=== PATIENT | male | born 1965 | race Caucasian/White ===

== ENCOUNTER 2017-09-17 09:47 | Emergency (ER) | payer BC ==
[2017-09-17] MEDS ORDERED: SUMAtriptan SUCCINATE 6 MG/0.5 ML VIAL SQ STA (10:42)
[2017-09-17] MEDS ORDERED: METOCLOPRAMIDE 5 MG/ML 2 ML VIAL IVP STA (10:42)
[2017-09-17] MEDS ORDERED: diphenhydrAMINE 50 MG/ML 1 ML VIAL IVP STA (10:42)
[2017-09-17] MEDS ORDERED: KETOROLAC 30 MG/ML 1 ML VIAL IVP STA (10:42)
[2017-09-17] MEDS ORDERED: SODIUM CHLORIDE 0.9% 1,000 ML IV STA ×2 (10:42)
--- NOTE | 2017-09-17 10:48 | ED ---
Headache HPI - General Chief Complaint: Headache Stated Complaint: Migraine Time Seen by Provider: 09/17/17 10:15 Source: patient, RN notes reviewed Mode of arrival: ambulatory Limitations: no limitations - History of Present Illness Initial Comments: This is a 52-year-old male history of migraine headaches who states he had the onset of a right-sided headache for the most part typical of his migraines associated with hypertension 3 days ago. He states his been unrelenting since about 8 in severity he does have some photophobia no blurry vision no focal weakness he states he had nausea vomiting all day yesterday. He states when he tries get walk he does not really feel lightheaded dizzy when he feels wishy- washy. No fevers chills sweats no other symptoms no sinus congestion. He does state he had the flu earlier in this month that seemed to gotten resolved however. He states his blood pressure was in the 160 systolic this morning he states he has been a blood pressure medication of the past was having trouble with the medication was on and currently is not taking any. MD Complaint: headache, "migraine", other - Related Data Home Medications Medication Instructions Recorded Confirmed Albuterol Sulfate [Proair Hfa] 2 puff INHALATION RT-QID 12/15/15 09/17/17 Budesonide-Formot 160-4.5 Mcg 2 puff INHALATION RT-BID 12/15/15 09/17/17 [Symbicort 160-4.5 Mcg Inhaler] Cyclobenzaprine [Flexeril] 5 mg PO DAILY PRN 12/15/15 09/17/17 Carvedilol [Coreg] 25 mg PO BID 09/17/17 09/17/17 Chlorthalidone [Hygroton] 25 mg PO DAILY 09/17/17 09/17/17 Etodolac [Lodine] 400 mg PO BID 09/17/17 09/17/17 Gabapentin [Neurontin] 300 mg PO TID 09/17/17 09/17/17 Losartan Potassium 100 mg PO HS 09/17/17 09/17/17 SUMAtriptan SUCCINATE [Imitrex] 100 mg PO BID PRN 09/17/17 09/17/17 Tiotropium 18 Mcg/Puff [Spiriva] 1 cap INHALATION RT-DAILY 09/17/17 09/17/17 amLODIPine [Norvasc] 5 mg PO DAILY 09/17/17 09/17/17 Previous Rx's Medication Instructions Recorded Enalapril [Vasotec] 10 mg PO DAILY #30 tablet 09/17/17 Allergies Allergy/AdvReac Type Severity Reaction Status Date / Time No Known Allergies Allergy Verified 09/17/17 10:57 Review of Systems ROS Statement: Those systems with pertinent positive or pertinent negative responses have been documented in the HPI. ROS Other: All systems not noted in ROS Statement are negative. Past Medical History Past Medical History: Asthma, Hypertension Additional Past Medical History / Comment(s): NOSE BLEED, HEADACHES History of Any Multi-Drug Resistant Organisms: None Reported Additional Past Surgical History / Comment(s): LUMBAR SURGERY, FINGERS Past Psychological History: No Psychological Hx Reported Smoking Status: Former smoker Past Alcohol Use History: None Reported, Occasional, Rare Past Drug Use History: Marijuana General Exam - General Exam Comments Initial Comments: This is a well-developed well-nourished awake alert oriented 3 male Limitations: no limitations General appearance: alert, anxious Head exam: Present: other (Tennis palpation of the right temporal parietal scalp no step-off or crepitation no pulsatile findings.) Eye exam: Present: normal appearance, PERRL, EOMI. Absent: scleral icterus, conjunctival injection, periorbital swelling ENT exam: Present: mucous membranes dry Neck exam: Present: normal inspection. Absent: tenderness, meningismus, lymphadenopathy Respiratory exam: Present: normal lung sounds bilaterally. Absent: respiratory distress, wheezes, rales, rhonchi, stridor Cardiovascular Exam: Present: regular rate, normal rhythm, normal heart sounds. Absent: systolic murmur, diastolic murmur, rubs, gallop, clicks GI/Abdominal exam: Present: soft, normal bowel sounds. Absent: distended, tenderness, guarding, rebound, rigid Extremities exam: Present: normal inspection, full ROM, normal capillary refill. Absent: tenderness, pedal edema, joint swelling, calf tenderness Back exam: Present: normal inspection Neurological exam: Present: alert, oriented X3, CN II-XII intact Psychiatric exam: Present: normal affect, normal mood Skin exam: Present: warm, dry, intact, normal color. Absent: rash Course Vital Signs 09/17/17 09/17/17 09/17/17 09:56 12:00 13:17 Temperature 97.3 F L 97.8 F 98.0 F Pulse Rate 93 75 76 Respiratory 18 19 18 Rate Blood Pressure 176/101 184/115 159/111 O2 Sat by Pulse 99 98 99 Oximetry - Reevaluation(s) Reevaluation #1: 09/17/17 12:26 Patient is feeling much improved at this time. He still has elevated blood pressure. He will be given some medication to help normalize a. He again is currently not taking any medication. Medical Decision Making - Medical Decision Making Evaluation patient reveals his headache is gone his blood pressure is improved with the IV medication. He will be discharged on appropriate prescription for antihypertensive. She will follow-up with his doctor and return when necessary - Lab Data Result diagrams: 09/17/17 11:17 Lab Results 09/17/17 Range/Units 11:17 Sodium 142 (137-145) mmol/L Potassium 3.9 (3.5-5.1) mmol/L Chloride 104 (98-107) mmol/L Carbon Dioxide 30 (22-30) mmol/L Anion Gap 8 mmol/L BUN 10 (9-20) mg/dL Creatinine 0.80 (0.66-1.25) mg/dL Est GFR (MDRD) Af Amer >60 (>60 ml/min/1.73 sqM) Est GFR (MDRD) Non-Af >60 (>60 ml/min/1.73 sqM) Glucose 90 (74-99) mg/dL Calcium 9.7 (8.4-10.2) mg/dL Magnesium 2.0 (1.6-2.3) mg/dL Total Bilirubin 0.5 (0.2-1.3) mg/dL AST 18 (17-59) U/L ALT 38 (21-72) U/L Alkaline Phosphatase 70 (38-126) U/L Total Protein 6.3 (6.3-8.2) g/dL Albumin 3.7 (3.5-5.0) g/dL Disposition Clinical Impression: Migraine, Hypertensive urgency Disposition: HOME SELF-CARE Condition: Good Instructions: Acute Headache (ED), Hypertension (ED) Prescriptions: Enalapril [Vasotec] 10 mg PO DAILY #30 tablet Referrals: Noemi Wynne DO [Primary Care Provider] - 1-2 days
[2017-09-17 11:47] LABS: ALT 38 U/L (21-72); AST 18 U/L (17-59); Albumin 3.7 g/dL (3.5-5.0); Alkaline Phosphatase 70 U/L (38-126); Anion Gap 8 mmol/L; Blood Urea Nitrogen 10 mg/dL (9-20); Calcium 9.7 mg/dL (8.4-10.2); Carbon Dioxide 30 mmol/L (22-30); Chloride 104 mmol/L (98-107); Glucose 90 mg/dL (74-99); Potassium 3.9 mmol/L (3.5-5.1); Sodium 142 mmol/L (137-145); Total Bilirubin 0.5 mg/dL (0.2-1.3); Total Protein 6.3 g/dL (6.3-8.2)
[2017-09-17] MEDS ORDERED: ENALAPRILAT 1.25 MG/ML 1 ML VIAL IVP STA (12:13)
[2017-09-17 13:18] VITALS: BP 159/111; PULSE 76; RESP 18; TEMP 98
== END 2017-09-17 13:37 | disposition home or self-care (01) ==
LOC: EC 09:47
DX: I16.0 Hypertensive urgency (principal); G43.909 Migraine, unspecified, not intractable, without status migrainosus; I10 Essential (primary) hypertension; J45.909 Unspecified asthma, uncomplicated; Z87.891 Personal history of nicotine dependence; Z79.51 Long term (current) use of inhaled steroids; Z79.02 Long term (current) use of antithrombotics/antiplatelets; Z79.899 Other long term (current) drug therapy
CPT/HCPCS: 36415; 80053; 83735; 99283; 96374; 96375 ×3; 96361 ×2; 96372; J3030; J1200; J2765; J1885

== ENCOUNTER → 2019-07-15 | Outpatient (CLI) | payer BC ==
[2019-07-15 12:13] LABS: HGB 15.7 gm/dL (13.0-17.5); MCH 32.6 pg (25.0-35.0); MCHC 34.8 g/dL (31.0-37.0); MCV 93.5 fL (80.0-100.0); Mean Platelet Volume 6.9; Platelet Count 334 k/uL (150-450); Potassium 4.3 mmol/L (3.5-5.1); RBC 4.82 m/uL (4.30-5.90); WBC 10.2 k/uL (3.8-10.6)
[2019-07-15 12:14] LABS: Albumin 4.3 g/dL (3.5-5.0); Calcium 9.9 mg/dL (8.4-10.2)
[2019-07-15 12:15] LABS: Appearance,Urine Clear (Clear); Bilirubin,Urine 1+ (Negative); Blood,Urine Negative (Negative); Color,Urine Colorless; Glucose,Urine (UA) Negative (Negative); Ketones,Urine Negative (Negative); Leukocyte Esterase,Urine Negative (Negative); Nitrite,Urine Negative (Negative); Protein,Urine Negative (Negative); Specific Gravity,Urine 1.003 (1.001-1.035); Urobilinogen,Urine <2.0 mg/dL (<2.0)
[2019-07-15 12:21] LABS: Prothrombin Time 10.6 sec (9.0-12.0)
== END ==
LOC: LABPAT 11:10
PROVIDERS: ATTEND Orthopaedic Surgery
DX: Z01.812 Encounter for preprocedural laboratory examination (principal); M17.0 Bilateral primary osteoarthritis of knee
CPT/HCPCS: 36415; 80053; 81003; 85027; 85610; 85730; 87070

== ENCOUNTER 2019-07-28 10:45 | Inpatient (IN) | payer BC ==
[2019-07-21 13:57] VITALS: BMI 30.5
[~2019-07-28 10:45] MED LIST: ACETAMINOPHEN TAB 500 MG TAB PO ONE; GABAPENTIN 300 MG CAP PO ONE; HYDROmorphone 0.5 MG/0.5 ML SYRINGE IVP PRN; LACTATED RINGERS 1,000 ML IV SCH; LIDOCAINE 1% 20 ML VIAL (10MG/ML) FOR IV START INTRADERMA PRN; MELOXICAM 7.5 MG TAB PO ONE; ONDANSETRON 4 MG/2 ML VIAL IVP ONE; ROPIVACAINE 246.25 MG, EPINEPHrine 0.5 MG, KETOROLAC 30 MG, cloNIDine HCL/PF 80 MCG, WA... MISCELLANE ONE; TRANEXAMIC ACID 1,000 MG in SODIUM CHLORIDE 0.9% 100 ML IVPB ONE
[2019-07-28] MEDS ORDERED: DEXAMETHASONE SOD PHOSPHATE 10 MG/ML 1 ML VIAL IV ONE (11:23)
[2019-07-28] MEDS ORDERED: MIDAZOLAM 2 MG/2 ML VIAL IV ONE (12:07)
[2019-07-28] MEDS ORDERED: TRANEXAMIC ACID 1,000 MG/10 ML VIAL ONE (12:21)
[2019-07-28] MEDS ORDERED: MIDAZOLAM 2 MG/2 ML VIAL ONE (12:21)
[2019-07-28] MEDS ORDERED: LIDOCAINE 1% INJ 10MG/ML (20 ML MDV) ONE (12:21)
[2019-07-28] MEDS ORDERED: fentaNYL (PF) 50 MCG/ML 2 ML AMP ONE (12:21)
[2019-07-28] MEDS ORDERED: HYDROmorphone (PF) 1 MG/ML ONE (12:21)
[2019-07-28] MEDS ORDERED: SODIUM CHLORIDE 0.9% 100 ML BAG ONE (12:21)
[2019-07-28] MEDS ORDERED: ePHEDrine SULFATE/0.9% NACL/PF 50 MG/5 ML SYRINGE IV ONE (12:21)
[2019-07-28] MEDS ORDERED: SUCCINYLCHOLINE CHLORIDE 100 MG/5 ML SYR IV ONE (12:21)
[2019-07-28] MEDS ORDERED: PROPOFOL 10 MG/ML 20 ML VIAL IV ONE (12:21)
[2019-07-28] MEDS ORDERED: ceFAZolin 3,000 MG in SODIUM CHLORIDE 0.9% IRRIGATIO 3,000 ML IRRIGATION ONE (12:25)
[2019-07-28] MEDS ORDERED: LACTATED RINGERS 1,000 ML IV ONE ×2 (13:19→14:45)
[2019-07-28] MEDS ORDERED: TRANEXAMIC ACID 1,000 MG in SODIUM CHLORIDE 0.9% 100 ML IVPB ONE (14:27)
--- NOTE | 2019-07-28 15:45 | P.OP ---
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 ANESTHESIA: Spinal ESTIMATED BLOOD LOSS: 100 ml. OYSTER FISHERMAN: Tamica Driscoll NP (assistance with: patient positioning, retraction, exposure, hemostasis, leg positioning, implantation, irrigation, closure, dressing) COMPLICATIONS: None apparent. COMPONENTS IMPLANTED: Journey II BCS total knee system from and [employer] INDICATIONS: Rafa is a 54 year old male with a history of bilateral knee osteoarthritis. The patient's knees are end-stage, and conservative management has failed. He has bascially [id number]-sj-[id number] contact in the patellofemoral joint, which accounts for the majority of his symptoms. The operation of knee replacement bilaterally has been discussed at length in the office, as well as potential risks and complications. These are inclusive of, but not limited to: bleeding, infection, scarring, discomfort, blood vessel and nerve damage, need for further surgery, failure to relieve symptoms, persistence, recurrence, or worsening of problems, loosening, dislocation, wear, blood clot, pulmonary embo lism, , gait dysfunction, stiffness, and other risks as discussed in the office. He understands the increased risks of morbidity and mortality with a bilateral knee approach. The patient elects to proceed and the consent form has been signed. PROCEDURE: The patient was taken to the operating room and positioned on the operating room table in the supine position. Anesthesia was initiated. Care was taken to make sure that all pressure points were adequately padded. The operative lower extremities were prepped and draped in the usual aseptic fashion using ChloraPrep. Ioban drape was used for the case and the patient received intravenous antibiotics within one hour of the incision. A pneumotourniquet and leg singletary were used for the case. The initial limb (left) was exsanguinated with an Esmarch bandage and the tourniquet was inflated to 350 mmHg. Time-out was called confirming the patient's identity, side (bilateral), procedure and administration of antibiotics and tranexamic acid. The incision was then created midline directly over the left knee, carried down through skin and into the subcutaneous tissues and down to fascia. Full thickness subcutaneous medial flap was developed. Medial parapatellar arthrotomy was performed and the interior of the knee was inspected. There was end-stage osteoarthritis of the knee with a mild to moderate genu valgum type deformity. The fat pad was excised and proximal medial release on the tibia was completed using meticulous dissection and a curved osteotome. The anterior cruciate ligament was taken down. Note was made of significant attrition of the anterior and significant degenerative appearance of the cruciate ligaments. The exposure was excellent. The knee was flexed 90 degrees and the patella was everted. The [employer] pre- made distal cutting block was attached and pinned into position. The planned cut was analyzed visually and with the alignment maria luz and found to be satisfactory without the need for any adjustment. The oscillating saw was then used to make the distal femoral cut and make the alignment holes for the 5 in 1 block. This cut was confirmed to be flat with the flat end of an osteotome. The 5 in 1 block was then used to create the anterior posterior condylar resections and the chamfer cuts. The retractors were placed around the tibia and the tibial surface was addressed. The [employer] pre-made guide was placed onto the exposed tibial surface and pinned into position to morena the rotational alignment. The alignment of the guide was checked for depth of plannned resection, slope, and varus valgus. Guide was confirmed to be in good position and the tibial cut was then created with protection of the posterior neurovascular structures and the collateral ligaments. The tibial cut surface was removed and sized. Spacer block technique was then used to confirm that the flexion and extension gaps were equal. Soft tissue releases and adjustment of the tibial and/or femoral cuts were made, as necessary, until the gaps were equal. This included release of the posterior cruciate ligament, which was excessively tight in this patient. The trial components were inserted. The tibial tray was allowed to self center and the patella was noted to track very well. The position of the tibial component was marked and noted to be nearly exactly aligned with the pre-drilled holes from the [employer] guide. The tibia was then finished for a stemmed tibial component. Patellar resurfacing was performed using a reamer. The size of the required patellar component was estimated and the patellar surface was then reamed down to a residual thickness which would recreate the [place] thickness with the component. The exact placement of the patellar component was adjusted for position based on preoperative x-rays and intraoperative findings. Patellar tracking remained excellent after resurfacing. Trial components were removed and the cut surfaces of the bone were pulse lavaged thoroughly and dried. Cement was mixed on the back table and applied to the final components. Cement was then applied to the tibial surface and pressurized into the surface using finger pressurization technique. The tibial component was then applied and excess cement was removed after it was impacted securely and noted to be flush with the cut surface. In similar fashion, the cement was applied to the cut femoral surface, pressurized in using finger pressurization and the component was impacted into place. Excess cement was removed. The polyethylene spacer was then implanted and locked into position. The patellar component was then applied in similar technique and a patellar clamp was used to hold the patella in place as the cement hardened. Once the cement had fully hardened, the knee was reinspected. Any other cement extrusion was removed and final kinematic testing showed range of motion from 0 to 130 degrees with excellent stability, both medially and laterally and appropriate alignment of the leg. Patellar tracking was excellent. The knee was then thoroughly pulse lavaged with normal saline. The tourniquet was deflated and hemostasis was obtained with electrocautery and IV tranexamic acid, 1 g given at the start of the operation and 1 g at the start of closure. Closure was with #2 Ethibond in the fascia/capsule and supplemented with #2 Quill, 2-0 Vicryl suture was used for the subcutaneous tissues and 3-0 Quill for the skin. Exofin topical dressing was then applied. The right leg was then uncovered by snipping the covering sterile drape and discarding. The above steps for the left knee were followed in similar fashion with the outcome being a fully cemented bicruciate substituting reconstruction with excellent patellar tracking and 0-130 degrees motion. No complications were noted during the surgery on either knee. Estimated blood loss was 50 cc per knee, total of 100 cc for the entire procedure. A lightly compressive dressing was applied to both knees using Webril and an Denys wrap. The patient was then transferred to stretcher and taken to the recovery room in stable condition. Sponge and needle counts were correct.
[2019-07-28] MEDS ORDERED: HYDROmorphone 0.5 MG/0.5 ML SYRINGE IVP PRN ×2 (16:20)
[2019-07-28] MEDS ORDERED: MAGNESIUM HYDROXIDE 2,400 MG/10 ML CUP PO PRN (16:20)
[2019-07-28] MEDS ORDERED: TEMAZEPAM 15 MG CAP PO PRN (16:20)
[2019-07-28] MEDS ORDERED: BISACODYL 10 MG SUPP RECTAL PRN (16:20)
[2019-07-28] MEDS ORDERED: hydrOXYzine PAMOATE 25 MG CAP PO PRN (16:20)
[2019-07-28] MEDS ORDERED: NA PHOS,M-B/NA PHOS,DI-BA 133 ML ENEMA RECTAL PRN (16:20)
[2019-07-28] MEDS ORDERED: HYDROmorphone 1 MG/ML 1 ML SYRINGE IVP PRN (16:20)
[2019-07-28] MEDS ORDERED: HYDROcodone/APAP 7.5-325MG 1 EACH TAB PO PRN (16:20)
[2019-07-28] MEDS: ROPIVACAINE 0.2%-NS ON-Q PUMP 1,090 MG, EMPTY PAIN BALL 1 EACH MISCELLANE PRN ×2 (16:58→16:59)
--- NOTE | 2019-07-28 17:10 | XR ---
EXAMINATION TYPE: XR knee limited bilateral DATE OF EXAM: 07/28/2019 CLINICAL HISTORY: Bilateral knee pain and arthritis status post total knee replacement. TECHNIQUE: Portable AP and crosstable lateral views of the bilateral knees are obtained immediately postoperatively. COMPARISON: None FINDINGS: Metallic hardware from total right lateral knee arthroplasties is seen and appears satisfa ctory in alignment and position. There is evidence of recent surgery with diffuse subcutaneous gas a nd soft tissue swelling noted. IMPRESSION: METALLIC HARDWARE FROM TOTAL lateral KNEE ARTHROPLASTY IS SATISFACTORY IN ALIGNMENT.
--- NOTE | 2019-07-28 18:56 | P.ANPRN ---
Procedure Note - Anesthesia - Nerve Block Performed Bilateral Adductor Canal Infusion Time Out Performed: Yes Date of Procedure: 07/28/19 Procedure Start Time: 11:53 Procedure Stop Time: 12:18 Location of Patient: PreOp Indication: Acute Post-Operative Pain, Requested by Surgeon Sedation Type: Sedate with meaningful contact maintained Preparation: Sterile Prep, Sterile Dressing Position: Supine Catheter: Indwelling Needle Types: Pajunk Needle Gauge: 21 Ultrasound used to visualize needle placement: Yes Ultrasound used to observe medication spread: Yes Blood Aspirated: No Pain Paresthesia on Injection Noted: No Resistance on Injection: Normal Image Stored and Saved: Yes Events: Uneventful and Well Tolerated (ropi .5% 20cc plus dexamethasone 4mg each side)
[2019-07-28] MEDS ORDERED: NON FORMULARY DRUG (Tiotropium 18 Mcg/Puff 1 CAP) INHALATION SCH (19:30)
[2019-07-28] MEDS: ONDANSETRON 4 MG/2 ML VIAL IVP PRN (19:38)
[2019-07-28] MEDS: HYDROcodone/APAP 7.5-325MG 1 EACH TAB PO PRN (19:39)
[2019-07-28] MEDS: LACTATED RINGERS 1,000 ML IV SCH (20:20)
[2019-07-28] MEDS: ATORVASTATIN 40 MG TAB PO SCH (20:23)
[2019-07-28] MEDS: SENNOSIDES-DOCUSATE SODIUM 1 EACH TAB PO SCH (20:24)
[2019-07-28] MEDS: GABAPENTIN 300 MG CAP PO SCH (20:24)
[2019-07-28] MEDS: ASPIRIN 325 MG TAB PO SCH (20:24)
[2019-07-28] MEDS: CARVEDILOL 12.5 MG TAB PO SCH (20:28)
[2019-07-28] MEDS: IPRATROPIUM-ALBUTEROL 3 ML NEB INHALATION SCH (20:31)
[2019-07-28] MEDS: SYMBICORT 160-4.5 MCG INHALER INHALATION SCH (20:31)
[2019-07-29] MEDS: HYDROcodone/APAP 7.5-325MG 1 EACH TAB PO PRN ×2 (01:04→07:21)
[2019-07-29] MEDS ORDERED: SUMAtriptan SUCCINATE 50 MG TAB PO STA (01:38)
--- NOTE | 2019-07-29 01:39 | P.CONS ---
History of Present Illness - Reason for Consult Consult date: 07/28/19 medical management Requesting physician: Heladio Jasmine - Chief Complaint Scheduled bilateral total knee arthroplasty - History of Present Illness 54-year-old male with history of rheumatoid arthritis hypertension and asthma Patient comes in for scheduled bilateral total knee arthroplasty due to severe degenerative joint disease. Patient tolerated procedure well no complications in the immediate postoperative period. Tolerated by mouth intake. Pain is well-tolerated, denies any chest pain or trouble breathing denies any abdominal pain. Medicine was consult it for postoperative management of hypertension and asthma Review of Systems Pertinent positives as noted in HPI. All other systems were reviewed and are negative Past Medical History Past Medical History: Asthma, Hyperlipidemia, Hypertension, Rheumatoid Arthritis (RA) Additional Past Medical History / Comment(s): migraines, varicose veins, History of Any Multi-Drug Resistant Organisms: None Reported Past Surgical History: Back Surgery, Orthopedic Surgery Additional Past Surgical History / Comment(s): L4 lumbar surgery, left hand middle and ring finger repair of injury Past Anesthesia/Blood Transfusion Reactions: Motion Sickness Past Psychological History: No Psychological Hx Reported Smoking Status: Former smoker Past Alcohol Use History: None Reported Additional Past Alcohol Use History / Comment(s): quit smoking 30 yrs ago, smoked 3 PPD, smoked 6-7 yrs Past Drug Use History: None Reported - Past Family History Mother Family Medical History: No Reported History Medications and Allergies Home Medications Medication Instructions Recorded Confirmed Type Albuterol Sulfate [Proair Hfa] 2 puff INHALATION QID PRN 12/15/15 07/21/19 History Budesonide-Formot 160-4.5 Mcg 2 puff INHALATION BID 12/15/15 07/21/19 History [Symbicort 160-4.5 Mcg Inhaler] Cyclobenzaprine [Flexeril] 5 mg PO DAILY PRN 12/15/15 07/21/19 History Carvedilol [Coreg] 25 mg PO BID 09/17/17 07/21/19 History Chlorthalidone [Hygroton] 25 mg PO DAILY 09/17/17 07/21/19 History Etodolac [Lodine] 400 mg PO BID 09/17/17 07/21/19 History Gabapentin [Neurontin] 300 mg PO BID 09/17/17 07/21/19 History Losartan Potassium 100 mg PO W/SUPPER 09/17/17 07/21/19 History SUMAtriptan SUCCINATE [Imitrex] 100 mg PO DIRECTED PRN 09/17/17 07/21/19 History Tiotropium 18 Mcg/Puff [Spiriva] 1 cap INHALATION DAILY 09/17/17 07/21/19 History amLODIPine [Norvasc] 5 mg PO DAILY 09/17/17 07/21/19 History Atorvastatin [Lipitor] 40 mg PO HS 07/21/19 07/21/19 History Potassium Chloride [Klor-Con 20] 20 meq PO DAILY 07/21/19 07/21/19 History Allergies Allergy/AdvReac Type Severity Reaction Status Date / Time No Known Allergies Allergy Verified 07/28/19 11:00 Physical Exam Vitals: Vital Signs Temp Pulse Pulse Pulse Pulse Resp BP 07/28/19 20:44 82 07/28/19 20:32 86 07/28/19 19:49 97.7 F 86 07/28/19 19:15 88 07/28/19 19:00 89 07/28/19 18:45 89 07/28/19 18:30 89 07/28/19 18:15 91 07/28/19 18:00 90 07/28/19 17:45 79 07/28/19 17:30 85 07/28/19 17:15 98 F 88 12 07/28/19 17:00 90 16 07/28/19 16:45 93 16 07/28/19 16:30 97 18 07/28/19 16:15 99.3 F 102 H 14 07/28/19 12:20 82 16 139/89 07/28/19 11:09 97.1 F L 79 16 168/97 BP Pulse Ox 07/28/19 20:44 07/28/19 20:32 07/28/19 19:49 138/92 96 07/28/19 19:15 133/93 07/28/19 19:00 130/91 07/28/19 18:45 138/92 07/28/19 18:30 131/81 07/28/19 18:15 134/86 07/28/19 18:00 128/85 07/28/19 17:45 114/82 07/28/19 17:30 131/87 07/28/19 17:15 115/87 95 07/28/19 17:00 120/74 92 L 07/28/19 16:45 118/69 98 07/28/19 16:30 136/63 98 07/28/19 16:15 115/73 95 07/28/19 12:20 96 07/28/19 11:09 98 Intake and Output 07/28/19 07/28/19 07/29/19 14:59 22:59 06:59 Intake Total 2551 100 Output Total 500 Balance 2551 -400 Intake: IV 2551 100 Output: Urine 400 Estimated Blood Loss 100 Other: Weight 102.1 kg 102.1 kg Constitutional: No acute distress, conversant, pleasant Eyes: Anicteric sclerae, moist conjunctiva, no lid-lag Pupils equal round reactive to light ENMT: NC/AT Oropharynx clear, no erythema, exudates Neck: Supple, FROM, no masses, or JVD No carotid bruits No thyromegaly Lungs: Clear to auscultation Clear to percussion Normal respiratory effort, no accessory muscle use Cardiovascular: Heart regular in rate and rhythm, No murmurs, gallops, or rubs No peripheral edema Abdominal: Soft Nontender, no guarding, rebound or rigidity Abdomen moving with respiration Normoactive bowel sounds No hepatomegaly, No splenomegaly No palpable mass No abdominal wall hernia noted Skin: Normal temperature, tone, texture, turgor No induration No subcutaneous nodules No rash, lesions No ulcers Extremities: No digital cyanosis No clubbing Pedal pulses intact and symmetrical Radial pulses intact and symmetrical No calf tenderness Psychiatric: Alert and oriented to person, place and time Appropriate affect fair judgment Neuro Muscles Strength 5/5 in bilateral upper extremities, limited exam over bilateral lower extremities to surgery Sensation to light touch grossly present throughout Cranial nerves II-XII grossly intact No focal sensory deficits Lymphatics: no palpable cervical or supraclavicular , or inguinal lymph nodes Assessment and Plan Assessment: 54-year-old male with history of hypertension and asthma admitted for back surgery tolerated procedure well medicine consulted for medical management Plan: Bilateral degenerative joint disease of the knee status post total knee arthroplasty bilaterally postoperative day 0 Management per orthopedics Chronic conditions Hypertension Asthma Currently well-controlled Continue home meds migraine headaches, sumatriptan prn Check morning labs CBC and BMP Thank you for allowing us to participate in the care of this patient. Do not hesitate to contact us with questions. Someone can be reached from the [facility] [place] hospitalist group at all hours of the day at [phone].
[2019-07-29] MEDS: LACTATED RINGERS 1,000 ML IV SCH ×3 (02:25→22:27)
[2019-07-29] MEDS: SYMBICORT 160-4.5 MCG INHALER INHALATION SCH ×2 (07:14→19:11)
[2019-07-29] MEDS: IPRATROPIUM-ALBUTEROL 3 ML NEB INHALATION SCH ×4 (07:14→19:11)
[2019-07-29] MEDS: amLODIPine 5 MG TAB PO SCH (07:21)
[2019-07-29] MEDS: ASPIRIN 325 MG TAB PO SCH ×2 (07:21→19:49)
[2019-07-29] MEDS: CHLORTHALIDONE 25 MG TAB PO SCH (07:21)
[2019-07-29] MEDS: GABAPENTIN 300 MG CAP PO SCH ×2 (07:21→19:49)
[2019-07-29] MEDS: CARVEDILOL 12.5 MG TAB PO SCH ×2 (07:21→18:00)
--- NOTE | 2019-07-29 07:52 | P.PN ---
Progress Note - Text 07/29 712am 54-year-old male status post bilateral total knee replacement with On-Q pump on each side. On-Q pump is running at 8 mL an hour for each knee. Patient has a VAS of 7 for the right leg and VAS of 4 on the left. Plan to continue On-Q pump infusion
[2019-07-29 08:07] LABS: African American GFR (CKD) >90 (>60 ml/min/1.73 sqM); Anion Gap 11 mmol/L; Blood Urea Nitrogen 11 mg/dL (9-20); Calcium 9.1 mg/dL (8.4-10.2); Carbon Dioxide 29 mmol/L (22-30); Chloride 98 mmol/L (98-107); Glucose 125 mg/dL (74-99); Non-African American GFR(CKD) >90 (>60 ml/min/1.73 sqM); Potassium 3.3 mmol/L (3.5-5.1); Sodium 138 mmol/L (137-145)
[2019-07-29] MEDS ORDERED: HYDROcodone/APAP 10-325MG 1 EACH TAB PO PRN (08:50)
[2019-07-29] MEDS ORDERED: CALCIUM CARBONATE 500 MG CHEWABLE PO PRN (09:12)
--- NOTE | 2019-07-29 09:21 | P.PN ---
Subjective Progress Note Date: 07/29/19 Principal diagnosis: Status post bilateral total knee arthroplasties This is a 54 year-old male post bilateral total knee arthroplasties. This is post-op day 1. The patient was evaluated at the bedside today. The patient denies vomiting, abdominal pain, shortness of breath, and chest pain this morning. He is feeling nauseated since working with physical therapy and is now up to the recliner chair at the bedside. He states he had a severe migraine las t night as well was given Imitrex. He states his pain is controlled at this time on the left knee but states the right knee pain is constant and severe. Objective - Vital Signs Vital signs: Vital Signs Temp 97.9 F 07/29/19 08:35 Pulse 91 07/29/19 08:35 Resp 12 07/29/19 08:35 BP 146/97 07/29/19 08:35 Pulse Ox 99 07/29/19 08:35 Intake & Output 07/28/19 07/29/19 07/29/19 18:59 06:59 18:59 Intake Total 2651 Output Total 500 800 Balance 2151 -800 Weight 102.1 kg Intake: IV 2651 Output: Urine 400 800 Estimated Blood Loss 100 Other: Voiding Method Indwelling Catheter - Exam The patient does not appear in acute distress. Alert and orientated x3. Dressings are clean dry and intact. No erythema or active drainage. Calves are soft and nontender. Good foot and ankle motion without difficulty bilaterally. Sensation and circulatory status is intact. - Labs CBC & Chem 7: 07/29/19 07:13 Labs: Abnormal Lab Results - Last 24 Hours (Table) 07/29/19 Range/Units 07:13 Potassium 3.3 L (3.5-5.1) mmol/L Glucose 125 H (74-99) mg/dL Assessment and Plan (1) Status post bilateral knee replacements Current Visit: Yes Status: Acute Code(s): Z96.653 - PRESENCE OF ARTIFICIAL KNEE JOINT, BILATERAL SNOMED Code(s): 734410149 (2) Primary osteoarthritis of knees, bilateral Current Visit: Yes Status: Acute Code(s): M17.0 - BILATERAL PRIMARY OSTEOARTHRITIS OF KNEE SNOMED Code(s): 012701771 Plan: 1. Continue pain control, increase On-Q pump on the right side and increase to [place] 10. Dilaudid if needed for breakthrough pain. 2. Anticoagulation with Aspirin 325 mg BID 3. Continue physical therapy and ambulation 4. Anticipate discharge home with homecare tomorrow.
[2019-07-29] MEDS: FAMOTIDINE 20 MG TAB PO SCH (10:31)
[2019-07-29] MEDS: ONDANSETRON 4 MG/2 ML VIAL IVP PRN (11:46)
[2019-07-29] MEDS ORDERED: POTASSIUM BICARBONATE/CIT AC 20 MEQ TABLET.EFF PO ONE (12:00)
--- NOTE | 2019-07-29 12:11 | P.PN ---
Subjective Progress Note Date: 07/29/19 the patient doing well only complained of nausea postop day #1 after having bilateral knee replacement, reports severe headache overnight that resolved with Imitrex. as serum potassium 3.3 this morning. no acute events overnight Objective - Vital Signs Vital signs: Vital Signs Temp 97.9 F 07/29/19 08:35 Pulse 92 07/29/19 10:45 Resp 12 07/29/19 08:35 BP 146/97 07/29/19 08:35 Pulse Ox 99 07/29/19 08:35 Intake & Output 07/28/19 07/29/19 07/29/19 18:59 06:59 18:59 Intake Total 2651 Output Total 500 800 Balance 2151 -800 Weight 102.1 kg Intake: IV 2651 Output: Urine 400 800 Estimated Blood Loss 100 Other: Voiding Method Indwelling Catheter - Exam Constitutional: No acute distress, conversant, pleasant Eyes: Anicteric sclerae, moist conjunctiva, no lid-lag, PERRLA ENMT: NC/AT,Oropharynx clear, no erythema, exudates Neck:Supple, FROM, no masses, or JVD, No carotid bruits; No thyromegaly Lungs: Clear to auscultation, Clear to percussion, Normal respiratory effort, no accessory muscle use Cardiovascular: Heart regular in rate and rhythm, No murmurs, gallops, or rubs no peripheral edema Abdominal: Soft Nontender, nom distended, no guarding, no rebound or rigidity, Normoactive bowel sounds No hepatomegaly, No splenomegaly, No palpable mass No abdominal wall hernia noted Skin: Normal temperature, tone, texture, turgor, No induration No subcutaneous nodules, No rash, lesions, No ulcers Extremities: Dressings are clean dry and intact. No erythema or active drainage. Calves are soft and nontender. Good foot and ankle motion without difficulty bilaterally. Sensation and circulatory status is intact. Psychiatric: Alert and oriented to person, place and time, Appropriate affect Intact judgement Neuro: Muscles Strength 5/5 in all 4 extremities, Sensation to light touch grossly present throughout, Cranial nerves II-XII grossly intact. No focal sensory deficits - Labs CBC & Chem 7: 07/29/19 07:13 Labs: Abnormal Lab Results - Last 24 Hours (Table) 07/29/19 Range/Units 07:13 Potassium 3.3 L (3.5-5.1) mmol/L Glucose 125 H (74-99) mg/dL Assessment and Plan Assessment: Hypertension * continue home medications * blood pressure marginally elevated continue to monitor Hypokalemia * Replace with 40 mEq of K-Lyte Asthma * Currently well-controlled * Continue home meds Bilateral degenerative joint disease of the knee status post total knee arthroplasty bilaterally postoperative day 1 * pain Management per orthopedics * continuous pain control currently On-Q pump currently on Hair Scynce
[2019-07-29] MEDS: HYDROcodone/APAP 10-325MG 1 EACH TAB PO PRN ×2 (14:14→19:49)
[2019-07-29 15:45] LABS: Basophils % (A) 0 %; Eosinophils % (A) 0 %; HCT 42.5 % (39.0-53.0); HGB 14.3 gm/dL (13.0-17.5); Lymphocytes # (A) 1.2 k/uL (1.0-4.8); Lymphocytes % (A) 7 %; MCH 32.4 pg (25.0-35.0); MCHC 33.7 g/dL (31.0-37.0); MCV 96.1 fL (80.0-100.0); Mean Platelet Volume 8.3; Monocytes # (A) 0.9 k/uL (0-1.0); Monocytes % (A) 5 %; Neutrophils % (A) 87 %; Platelet Count 332 k/uL (150-450); RBC 4.43 m/uL (4.30-5.90); RDW 12.4 % (11.5-15.5); WBC 17.2 k/uL (3.8-10.6)
[2019-07-29] MEDS: LOSARTAN 50 MG TAB PO SCH (18:00)
[2019-07-29] MEDS: ATORVASTATIN 40 MG TAB PO SCH (19:49)
[2019-07-29] MEDS: SENNOSIDES-DOCUSATE SODIUM 1 EACH TAB PO SCH (19:50)
[2019-07-30 00:29] LABS: Glucose,Whole Blood 127 mg/dL (75-99)
[2019-07-30] MEDS: NALOXONE 0.4 MG/ML 1 ML VIAL IV PRN ×2 (01:00→02:05)
[2019-07-30 01:05] LABS: Calcium 8.4 mg/dL (8.4-10.2); Potassium 2.9 mmol/L (3.5-5.1)
[2019-07-30 01:07] LABS: Basophils # (A) 0.1 k/uL (0-0.2); Basophils % (A) 0 %; Eosinophils # (A) 0.3 k/uL (0-0.7); Eosinophils % (A) 2 %; HCT 32.8 % (39.0-53.0); Lymphocytes # (A) 1.8 k/uL (1.0-4.8); Lymphocytes % (A) 13 %; MCHC 34.4 g/dL (31.0-37.0); Mean Platelet Volume 6.7; Monocytes # (A) 0.8 k/uL (0-1.0); Monocytes % (A) 6 %; Neutrophils # (A) 10.6 k/uL (1.3-7.7); Neutrophils % (A) 77 %; Platelet Count 312 k/uL (150-450); RBC 3.52 m/uL (4.30-5.90); RDW 12.5 % (11.5-15.5); WBC 13.8 k/uL (3.8-10.6)
[2019-07-30 01:09] LABS: HGB 11.3 gm/dL (13.0-17.5)
[2019-07-30 01:14] LABS: ABG Base Excess 6.7 mmol/L; ABG HCO3 30 mmol/L (21-25); ABG Oxygen Saturation 90.8 % (94-97); ABG PCO2 39 mmHg (35-45); ABG TCO2 31 mmol/L (19-24); Allen Test Performed? Yes
[2019-07-30] MEDS: IPRATROPIUM-ALBUTEROL 3 ML NEB INHALATION PRN (01:30)
--- NOTE | 2019-07-30 01:51 | P.PN ---
Progress Note - Text Progress Note Date: 07/30/19 I was notified by RN to evaluate patient's due to acute altered mental status Patient last seen normal was around 1900 where he requests pain medication was given [place] 10 As there is was doing rounds getting vital signs she noticed that the patient has some altered mental status and I was notified to evaluate patient Patient is lethargic but easily arousable he is confused about his location and why he is in the hospital. He is cooperative. Denies any chest pain or trouble breathing however he looks diaphoretic blood pressure is low with systolic in the mid 90s. Patient was on oxygen 2 L via nasal cannula due to earlier hypoxemia with oxygen saturation in the 70s. IVF fluid bolus was started A team notified Lung exams showed some decreased breath sounds at right lower lung but mostly due to poor effort from the patient Cardiac exam showed normal S1-S2 regular no murmurs Patient face looks puffy his left hand looked puffy which thought to be due to extravasation of IV fluid No leg edema bilaterally Neuro exam grossly was nonfocal Speech was kind of slow. EKG was done showed normal sinus rhythm Blood sugar was in the low 100 Stat set of labs were sent ABG was ordered Patient was given Narcan, and immediately started waking up became more alert and started asking questions. Again patient denied any chest pain or trouble breathing. Supplemental oxygen was stopped and he was able to maintain his oxygen saturation above 92% on room air. Diagnosis Acute metabolic encephalopathy secondary to opiates Acute hypoxic respiratory failure secondary to respiratory depression from opiates Nurse was notified to be very cautious with pain management. Patient had a total of 1 dose of Dilaudid early in the morning and 1 dose of [place] at around 1400 and this was his other dose of [place] around 1900 Patient has pain pump for nerve block over bilateral knees We'll discontinue opiates Continue to monitor patient closely Supportive care and supplemental oxygen as needed breathing treatment PRN IVF continue at 125 per hour check CXR in AM Total critical time spent in the care of this patient is 43 minutes
[2019-07-30] MEDS ORDERED: NALOXONE 0.4 MG/ML 10 ML VIAL IVP PRN (01:58)
[2019-07-30] MEDS: POTASSIUM CHLORIDE 10 MEQ in WATER FOR INJECTION 1 100ML.BAG IVPB SCH ×4 (02:28→06:49)
--- NOTE | 2019-07-30 03:53 | XR ---
EXAMINATION TYPE: XR chest 1V DATE OF EXAM: 07/30/2019 COMPARISON: NONE HISTORY: Fluid overload TECHNIQUE: Single frontal view of the chest is obtained. FINDINGS: Heart and mediastinum are normal. Lungs are clear of infiltrate. There is no pleural effus ion. There is no heart failure. There are chest leads. IMPRESSION: No active cardiopulmonary disease. Normal heart.
--- NOTE | 2019-07-30 04:37 | CT ---
EXAMINATION TYPE: CT angio chest DATE OF EXAM: 07/30/2019 COMPARISON: None HISTORY: R/O PE Chest pain CT DLP: 606.90 mGycm Automated exposure control for dose reduction was used. CONTRAST: Performed with IV Contrast, patient injected with 100 mL of Isovue 370. There are 3-D post processed images. FINDINGS: There is coarse interstitial density in the lungs. There are no hilar masses. There is no mediastinal adenopathy. Thoracic aorta shows no aneurysm or dissection. Heart size is normal. There is no perica rdial effusion. There is no pleural effusion. There is mild atelectasis left lung base. There is normal contrast opacification of the pulmonary arteries. I see no filling defect. Thoracic a anuj shows no aneurysm or dissection. IMPRESSION: Minimal atelectasis at the lung bases. No evidence of pulmonary embolism.
[2019-07-30] MEDS: CARVEDILOL 12.5 MG TAB PO SCH ×2 (06:02→17:13)
[2019-07-30 06:24] LABS: Basophils # (A) 0.1 k/uL (0-0.2); Basophils % (A) 0 %; Eosinophils # (A) 0.4 k/uL (0-0.7); Eosinophils % (A) 3 %; HCT 30.8 % (39.0-53.0); HGB 10.8 gm/dL (13.0-17.5); Lymphocytes # (A) 1.6 k/uL (1.0-4.8); Lymphocytes % (A) 12 %; MCH 32.8 pg (25.0-35.0); MCHC 35.2 g/dL (31.0-37.0); Mean Platelet Volume 5.9; Monocytes # (A) 0.7 k/uL (0-1.0); Monocytes % (A) 6 %; Neutrophils # (A) 10.1 k/uL (1.3-7.7); Neutrophils % (A) 78 %; Platelet Count 247 k/uL (150-450); RBC 3.31 m/uL (4.30-5.90); RDW 12.6 % (11.5-15.5)
[2019-07-30 06:37] LABS: African American GFR (CKD) >90 (>60 ml/min/1.73 sqM); Anion Gap 6 mmol/L; Blood Urea Nitrogen 18 mg/dL (9-20); Calcium 8.3 mg/dL (8.4-10.2); Carbon Dioxide 32 mmol/L (22-30); Chloride 97 mmol/L (98-107); Glucose 107 mg/dL (74-99); Non-African American GFR(CKD) 80 (>60 ml/min/1.73 sqM); Potassium 3.3 mmol/L (3.5-5.1); Sodium 135 mmol/L (137-145)
[2019-07-30] MEDS: IPRATROPIUM-ALBUTEROL 3 ML NEB INHALATION SCH ×4 (07:43→19:59)
[2019-07-30] MEDS: SYMBICORT 160-4.5 MCG INHALER INHALATION SCH ×2 (07:43→19:59)
[2019-07-30] MEDS: amLODIPine 5 MG TAB PO SCH (08:42)
[2019-07-30] MEDS: ASPIRIN 325 MG TAB PO SCH ×2 (08:42→21:28)
[2019-07-30] MEDS: HYDROcodone/APAP 10-325MG 1 EACH TAB PO PRN (08:43)
[2019-07-30] MEDS: CHLORTHALIDONE 25 MG TAB PO SCH (08:43)
[2019-07-30] MEDS: FAMOTIDINE 20 MG TAB PO SCH (08:43)
[2019-07-30] MEDS: GABAPENTIN 300 MG CAP PO SCH ×2 (08:43→21:28)
[2019-07-30] MEDS: LACTATED RINGERS 1,000 ML IV SCH (08:52)
--- NOTE | 2019-07-30 10:13 | P.PN ---
Subjective Progress Note Date: 07/30/19 Principal diagnosis: Status post bilateral total knee arthroplasties This is a 54 year-old male post bilateral total knee arthroplasties. This is post-op day 2. The patient was evaluated at the bedside today. The patient denies nausea, vomiting, abdominal pain, shortness of breath, and chest pain this morning. Early this morning the patient was found to be confused and let hargic. O2 saturation was in th 70's. A chest CTA was ordered and negative for PE. He was transferred to 3N step down unit for closer observation. Nursing states he was on a non-rebreather at the start of her shift and now transitioned to hi-flow 10L nasal cannula. The patient states he is feeling better this morning. His pain is controlled with the On-Q pumps and Guffey as needed. He is passing gas and had a bowel movement since surgery. Objective - Vital Signs Vital signs: Vital Signs Temp 98.1 F 07/30/19 09:00 Pulse 96 07/30/19 09:00 Resp 18 07/30/19 09:00 BP 112/72 07/30/19 09:00 Pulse Ox 100 07/30/19 09:00 Intake & Output 07/29/19 07/30/19 07/30/19 18:59 06:59 18:59 Intake Total 120 Output Total 0 Balance 0 120 Weight 97 kg Intake: Intake, IV Titration 100 Amount Potassium Chloride 10 meq 100 In Water For Injection 1 100ml.bag @ 100 mls/hr IVPB Q1HR [facility] Rx#: [id number] Oral 20 Output: Urine 0 Other: Voiding Method Toilet Urinal - Exam The patient does not appear in acute distress. Alert and orientated x3. Dressings are clean dry and intact. No erythema or active drainage. Calves are soft and nontender. Good foot and ankle motion without difficulty bilaterally. 1+ edema bilaterally. Sensation and circulatory status is intact. - Labs CBC & Chem 7: 07/30/19 06:12 07/30/19 06:12 Labs: Abnormal Lab Results - Last 24 Hours (Table) 07/29/19 07/30/19 07/30/19 Range/Units 07:13 00:22 00:49 WBC 17.2 H 13.8 H (3.8-10.6) k/uL RBC 3.52 L (4.30-5.90) m/uL Hgb 11.3 L D (13.0-17.5) gm/dL Hct 32.8 L (39.0-53.0) % Neutrophils # 15.0 H 10.6 H (1.3-7.7) k/uL ABG pH (7.35-7.45) ABG pO2 (83-108) mmHg ABG HCO3 (21-25) mmol/L ABG Total CO2 (19-24) mmol/L ABG O2 Saturation (94-97) % Sodium (137-145) mmol/L Potassium (3.5-5.1) mmol/L Chloride (98-107) mmol/L Carbon Dioxide (22-30) mmol/L Glucose (74-99) mg/dL POC Glucose (mg/dL) 127 H (75-99) mg/dL Calcium (8.4-10.2) mg/dL 07/30/19 07/30/19 07/30/19 Range/Units 00:49 01:10 06:12 WBC (3.8-10.6) k/uL RBC (4.30-5.90) m/uL Hgb (13.0-17.5) gm/dL Hct (39.0-53.0) % Neutrophils # (1.3-7.7) k/uL ABG pH 7.50 H (7.35-7.45) ABG pO2 58 L* (83-108) mmHg ABG HCO3 30 H (21-25) mmol/L ABG Total CO2 31 H (19-24) mmol/L ABG O2 Saturation 90.8 L (94-97) % Sodium 133 L 135 L (137-145) mmol/L Potassium 2.9 L 3.3 L (3.5-5.1) mmol/L Chloride 97 L 97 L (98-107) mmol/L Carbon Dioxide 32 H (22-30) mmol/L Glucose 127 H 107 H (74-99) mg/dL POC Glucose (mg/dL) (75-99) mg/dL Calcium 8.3 L (8.4-10.2) mg/dL 07/30/19 Range/Units 06:12 WBC 13.0 H (3.8-10.6) k/uL RBC 3.31 L (4.30-5.90) m/uL Hgb 10.8 L (13.0-17.5) gm/dL Hct 30.8 L (39.0-53.0) % Neutrophils # 10.1 H (1.3-7.7) k/uL ABG pH (7.35-7.45) ABG pO2 (83-108) mmHg ABG HCO3 (21-25) mmol/L ABG Total CO2 (19-24) mmol/L ABG O2 Saturation (94-97) % Sodium (137-145) mmol/L Potassium (3.5-5.1) mmol/L Chloride (98-107) mmol/L Carbon Dioxide (22-30) mmol/L Glucose (74-99) mg/dL POC Glucose (mg/dL) (75-99) mg/dL Calcium (8.4-10.2) mg/dL Assessment and Plan (1) Status post bilateral knee replacements Current Visit: Yes Status: Acute Code(s): Z96.653 - PRESENCE OF ARTIFICIAL KNEE JOINT, BILATERAL SNOMED Code(s): 370368107 (2) Primary osteoarthritis of knees, bilateral Current Visit: Yes Status: Acute Code(s): M17.0 - BILATERAL PRIMARY OSTEOARTHRITIS OF KNEE SNOMED Code(s): 627945593 Plan: 1. Continue pain control, decrease use of Guffey 2. Anticoagulation with Aspirin 325 mg BID 3. Continue physical therapy and ambulation 4. Anticipate discharge home with homecare when cleared by internal medicine.
[2019-07-30] MEDS ORDERED: SODIUM CHLORIDE 0.9% 1,000 ML IV ONE (13:19)
[2019-07-30] MEDS ORDERED: Potassium Replacement Protocol 1 EACH MISC MISCELLANE PRN (17:19)
--- NOTE | 2019-07-30 17:22 | P.PN ---
Subjective Progress Note Date: 07/30/19 the patient doing well only complained of nausea postop day #2 after having bilateral knee replacement,potassium 3.3 this morning. Patient apparently had altered mentation overnight where he was lethargic and was borderline hypotensive is given IV fluids. The patient was noted to have diminished oxygen saturations the patient was given Narcan and improved immediately. Objective - Vital Signs Vital signs: Vital Signs Temp 97.8 F 07/30/19 15:08 Pulse 93 07/30/19 15:46 Resp 18 07/30/19 15:08 BP 114/72 07/30/19 15:08 Pulse Ox 96 07/30/19 15:37 Intake & Output 07/29/19 07/30/19 07/30/19 18:59 06:59 18:59 Intake Total 120 1000 Output Total 0 Balance 0 120 1000 Weight 97 kg Intake: Intake, IV Titration 100 1000 Amount Potassium Chloride 10 meq 100 In Water For Injection 1 100ml.bag @ 100 mls/hr IVPB Q1HR [facility] Rx#: [id number] Sodium Chloride 0.9% 1, 1000 000 ml @ 999 mls/hr IV . Q1H1M [facility] Rx#:[id number] Oral 20 Output: Urine 0 Other: Voiding Method Toilet Urinal - Exam Constitutional: No acute distress, conversant, pleasant Eyes: Anicteric sclerae, moist conjunctiva, no lid-lag, PERRLA ENMT: NC/AT,Oropharynx clear, no erythema, exudates Neck:Supple, FROM, no masses, or JVD, No carotid bruits; No thyromegaly Lungs: Clear to auscultation, Clear to percussion, Normal respiratory effort, no accessory muscle use Cardiovascular: Heart regular in rate and rhythm, No murmurs, gallops, or rubs no peripheral edema Abdominal: Soft Nontender, nom distended, no guarding, no rebound or rigidity, Normoactive bowel sounds No hepatomegaly, No splenomegaly, No palpable mass No abdominal wall hernia noted Skin: Normal temperature, tone, texture, turgor, No induration No subcutaneous nodules, No rash, lesions, No ulcers Extremities: Dressings are clean dry and intact. No erythema or active drainage. Calves are soft and nontender. Good foot and ankle motion without difficulty bilaterally. Sensation and circulatory status is intact. Psychiatric: Alert and oriented to person, place and time, Appropriate affect Intact judgement Neuro: Muscles Strength 5/5 in all 4 extremities, Sensation to light touch grossly present throughout, Cranial nerves II-XII grossly intact. No focal sensory deficits - Labs CBC & Chem 7: 07/30/19 06:12 07/30/19 06:12 Labs: Abnormal Lab Results - Last 24 Hours (Table) 07/30/19 07/30/19 07/30/19 Range/Units 00:22 00:49 00:49 WBC 13.8 H (3.8-10.6) k/uL RBC 3.52 L (4.30-5.90) m/uL Hgb 11.3 L D (13.0-17.5) gm/dL Hct 32.8 L (39.0-53.0) % Neutrophils # 10.6 H (1.3-7.7) k/uL ABG pH (7.35-7.45) ABG pO2 (83-108) mmHg ABG HCO3 (21-25) mmol/L ABG Total CO2 (19-24) mmol/L ABG O2 Saturation (94-97) % Sodium 133 L (137-145) mmol/L Potassium 2.9 L (3.5-5.1) mmol/L Chloride 97 L (98-107) mmol/L Carbon Dioxide (22-30) mmol/L Glucose 127 H (74-99) mg/dL POC Glucose (mg/dL) 127 H (75-99) mg/dL Calcium (8.4-10.2) mg/dL 07/30/19 07/30/19 07/30/19 Range/Units 01:10 06:12 06:12 WBC 13.0 H (3.8-10.6) k/uL RBC 3.31 L (4.30-5.90) m/uL Hgb 10.8 L (13.0-17.5) gm/dL Hct 30.8 L (39.0-53.0) % Neutrophils # 10.1 H (1.3-7.7) k/uL ABG pH 7.50 H (7.35-7.45) ABG pO2 58 L* (83-108) mmHg ABG HCO3 30 H (21-25) mmol/L ABG Total CO2 31 H (19-24) mmol/L ABG O2 Saturation 90.8 L (94-97) % Sodium 135 L (137-145) mmol/L Potassium 3.3 L (3.5-5.1) mmol/L Chloride 97 L (98-107) mmol/L Carbon Dioxide 32 H (22-30) mmol/L Glucose 107 H (74-99) mg/dL POC Glucose (mg/dL) (75-99) mg/dL Calcium 8.3 L (8.4-10.2) mg/dL Assessment and Plan Assessment: Acute metabolic encephalopathy * Secondary to opiates ( improved after Narcan) * Continue Narcan when necessary if required Acute after failure with hypoxemia * Secondary to opiates induced respiratory depression, previously on nonrebreather weaning down to high flow at 5L * CT of the chest negative for PE, ABG showed respiratory alkalosis Hypertension * Blood pressure continues to be borderline we'll hold his chlorthalidone and Norvasc today * blood pressure marginally elevated continue to monitor Hypokalemia * Replace with 40 mEq of K-Lyte * Initiated potassium were placement protocol will also replace magnesium Asthma * Currently well-controlled * Continue home meds Bilateral degenerative joint disease of the knee status post total knee arthroplasty bilaterally postoperative day 2 * pain Management per orthopedics * Opiate medications have been discontinued, patient continues to have Q pumps Disposition * We'll recheck labs in the morning replace electrolytes today and see if the patient has improved
[2019-07-30] MEDS: POTASSIUM CHLORIDE ER 20 MEQ TAB.ER PO SCH ×2 (17:46→19:26)
[2019-07-30] MEDS: MAGNESIUM SULFATE-D5W PMX 1 GM in DEXTROSE/WATER 1 100ML.BAG IVPB SCH ×3 (17:46→19:45)
[2019-07-30] MEDS: LOSARTAN 50 MG TAB PO SCH (19:01)
[2019-07-30] MEDS: HYDROcodone/APAP 7.5-325MG 1 EACH TAB PO PRN (21:28)
[2019-07-30] MEDS: ATORVASTATIN 40 MG TAB PO SCH (21:28)
[2019-07-30] MEDS: SENNOSIDES-DOCUSATE SODIUM 1 EACH TAB PO SCH (21:28)
[2019-07-31] MEDS: HYDROcodone/APAP 7.5-325MG 1 EACH TAB PO PRN ×4 (03:31→22:48)
[2019-07-31] MEDS: CARVEDILOL 12.5 MG TAB PO SCH ×2 (07:00→17:18)
[2019-07-31 07:20] LABS: Basophils % (A) 0 %; Eosinophils # (A) 0.4 k/uL (0-0.7); Eosinophils % (A) 5 %; HCT 26.5 % (39.0-53.0); HGB 9.4 gm/dL (13.0-17.5); Lymphocytes # (A) 1.7 k/uL (1.0-4.8); Lymphocytes % (A) 17 %; MCHC 35.4 g/dL (31.0-37.0); MCV 93.3 fL (80.0-100.0); Mean Platelet Volume 6.2; Monocytes # (A) 0.6 k/uL (0-1.0); Monocytes % (A) 6 %; Neutrophils % (A) 71 %; Platelet Count 219 k/uL (150-450); RBC 2.84 m/uL (4.30-5.90); RDW 12.5 % (11.5-15.5); WBC 9.9 k/uL (3.8-10.6)
[2019-07-31 07:30] LABS: African American GFR (CKD) >90 (>60 ml/min/1.73 sqM); Anion Gap 4 mmol/L; Blood Urea Nitrogen 16 mg/dL (9-20); Carbon Dioxide 29 mmol/L (22-30); Chloride 100 mmol/L (98-107); Glucose 101 mg/dL (74-99); Magnesium 2.1 mg/dL (1.6-2.3); Non-African American GFR(CKD) >90 (>60 ml/min/1.73 sqM); Sodium 133 mmol/L (137-145)
[2019-07-31 07:33] LABS: Potassium 3.6 mmol/L (3.5-5.1)
[2019-07-31] MEDS: IPRATROPIUM-ALBUTEROL 3 ML NEB INHALATION SCH ×4 (07:48→20:06)
[2019-07-31] MEDS: SYMBICORT 160-4.5 MCG INHALER INHALATION SCH ×2 (07:49→20:06)
[2019-07-31 08:21] LABS: ABG PO2 58 mmHg (83-108)
--- NOTE | 2019-07-31 08:43 | P.PN ---
Subjective Progress Note Date: 07/31/19 Principal diagnosis: Status post bilateral total knee arthroplasties This is a 54 year-old male post bilateral total knee arthroplasties. This is post-op day 3. The patient was evaluated at the bedside today. The patient denies nausea, vomiting, abdominal pain, shortness of breath, and chest pain this morning. Two nights ago the patient was found to be confused and lethargic. O2 saturation was in th 70's. A chest CTA was ordered and negative for PE. He was transferred to 3N step down unit for closer observation. He was given 1 dose of [place] 10 yesterday then had another dose soon after, he again had a drop in O2 saturation and had an episode of lethargy. [place] 10 was discontinued and 1 tab of [place] 7.5 q6 PRN was ordered. The patient states he is feeling better this morning. His pain is controlled with the On-Q pumps and [place] 7.5 as needed. He is passing gas and had a bowel movement since surgery. He is currently on 8L of O2 with a pulse ox of 97% at the beside. Objective - Vital Signs Vital signs: Vital Signs Temp 98.7 F 07/31/19 03:33 Pulse 94 07/31/19 07:54 Resp 18 07/31/19 03:33 BP 111/68 07/31/19 03:33 Pulse Ox 96 07/31/19 07:54 Intake & Output 07/30/19 07/31/19 07/31/19 18:59 06:59 18:59 Intake Total 1222 120 Output Total 300 Balance 1222 -180 Weight 107.6 kg Intake: Intake, IV Titration 1000 Amount Sodium Chloride 0.9% 1, 1000 000 ml @ 999 mls/hr IV . Q1H1M [facility] Rx#:[id number] Oral 222 120 Output: Urine 300 Other: Voiding Method Toilet Urinal # Voids 2 - Exam The patient does not appear in acute distress. Alert and orientated x3. Dressings are clean dry and intact. No erythema or active drainage. Calves are soft and nontender. Good foot and ankle motion without difficulty bilaterally. 1+ edema bilaterally. Sensation and circulatory status is intact. - Labs CBC & Chem 7: 07/31/19 06:37 07/31/19 06:37 Labs: Abnormal Lab Results - Last 24 Hours (Table) 07/30/19 07/31/19 07/31/19 Range/Units 01:10 06:37 06:37 RBC 2.84 L (4.30-5.90) m/uL Hgb 9.4 L (13.0-17.5) gm/dL Hct 26.5 L (39.0-53.0) % ABG pO2 58 L* (83-108) mmHg Sodium 133 L (137-145) mmol/L Glucose 101 H (74-99) mg/dL Calcium 8.0 L (8.4-10.2) mg/dL Assessment and Plan (1) Status post bilateral knee replacements Current Visit: Yes Status: Acute Code(s): Z96.653 - PRESENCE OF ARTIFICIAL KNEE JOINT, BILATERAL SNOMED Code(s): 002108765 (2) Primary osteoarthritis of knees, bilateral Current Visit: Yes Status: Acute Code(s): M17.0 - BILATERAL PRIMARY OSTEOARTHRITIS OF KNEE SNOMED Code(s): 221918032 Plan: 1. Continue pain control, decrease use of [place] 2. Anticoagulation with Aspirin 325 mg BID 3. Continue physical therapy and ambulation 4. Encouraged incentive spirometry 5. Anticipate discharge home with homecare when weaned off oxygen and cleared by internal medicine.
[2019-07-31] MEDS: GABAPENTIN 300 MG CAP PO SCH ×2 (09:02→22:48)
[2019-07-31] MEDS: ASPIRIN 325 MG TAB PO SCH ×2 (09:02→22:48)
[2019-07-31] MEDS: FAMOTIDINE 20 MG TAB PO SCH (09:02)
--- NOTE | 2019-07-31 13:58 | P.PN ---
Subjective Progress Note Date: 07/31/19 the patient doing well only complained of nausea postop day #3 after having bilateral knee replacement,potassium 3.6, magnesium 2.1 this morning. No altered mentation overnight. Patient currently on 4 L we'll wean down to 2 Objective - Vital Signs Vital signs: Vital Signs Temp 98.6 F 07/31/19 11:17 Pulse 96 07/31/19 11:34 Resp 18 07/31/19 11:17 BP 105/60 07/31/19 11:17 Pulse Ox 93 L 07/31/19 11:17 Intake & Output 07/30/19 07/31/19 07/31/19 18:59 06:59 18:59 Intake Total 1222 120 360 Output Total 300 Balance 1222 -180 360 Weight 107.6 kg Intake: Intake, IV Titration 1000 Amount Sodium Chloride 0.9% 1, 1000 000 ml @ 999 mls/hr IV . Q1H1M [facility] Rx#:[id number] Oral 222 120 360 Output: Urine 300 Other: Voiding Method Toilet Toilet Urinal Urinal # Voids 2 - Exam Constitutional: No acute distress, conversant, pleasant Eyes: Anicteric sclerae, moist conjunctiva, no lid-lag, PERRLA ENMT: NC/AT,Oropharynx clear, no erythema, exudates Neck:Supple, FROM, no masses, or JVD, No carotid bruits; No thyromegaly Lungs: Clear to auscultation, Clear to percussion, Normal respiratory effort, no accessory muscle use Cardiovascular: Heart regular in rate and rhythm, No murmurs, gallops, or rubs no peripheral edema Abdominal: Soft Nontender, nom distended, no guarding, no rebound or rigidity, Normoactive bowel sounds No hepatomegaly, No splenomegaly, No palpable mass No abdominal wall hernia noted Skin: Normal temperature, tone, texture, turgor, No induration No subcutaneous nodules, No rash, lesions, No ulcers Extremities: Dressings are clean dry and intact. No erythema or active drainage. Calves are soft and nontender. Good foot and ankle motion without difficulty bilaterally. Sensation and circulatory status is intact. Psychiatric: Alert and oriented to person, place and time, Appropriate affect Intact judgement Neuro: Muscles Strength 5/5 in all 4 extremities, Sensation to light touch grossly present throughout, Cranial nerves II-XII grossly intact. No focal sensory deficits - Labs CBC & Chem 7: 07/31/19 06:37 07/31/19 06:37 Labs: Abnormal Lab Results - Last 24 Hours (Table) 07/30/19 07/31/19 07/31/19 Range/Units 01:10 06:37 06:37 RBC 2.84 L (4.30-5.90) m/uL Hgb 9.4 L (13.0-17.5) gm/dL Hct 26.5 L (39.0-53.0) % ABG pO2 58 L* (83-108) mmHg Sodium 133 L (137-145) mmol/L Glucose 101 H (74-99) mg/dL Calcium 8.0 L (8.4-10.2) mg/dL Assessment and Plan Assessment: Acute metabolic encephalopathy * Secondary to opiates ( improved after Narcan) * Continue Narcan when necessary if required Acute after failure with hypoxemia * Secondary to opiates induced respiratory depression, previously on nonrebreather weaning down to high flow at 5L * CT of the chest negative for PE, ABG showed respiratory alkalosis Hypertension * Blood pressure continues to be borderline we'll hold his chlorthalidone and Norvasc today * blood pressure marginally elevated continue to monitor Hypokalemia * Replace with 40 mEq of K-Lyte * Initiated potassium were placement protocol will also replace magnesium Asthma * Currently well-controlled * Continue home meds Bilateral degenerative joint disease of the knee status post total knee arthroplasty bilaterally postoperative day 2 * pain Management per orthopedics * Opiate medications have been discontinued, patient continues to have Q pumps Disposition * We'll recheck labs in the morning replace electrolytes today and see if the patient has improved
[2019-07-31] MEDS: IPRATROPIUM-ALBUTEROL 3 ML NEB INHALATION PRN (14:29)
[2019-07-31] MEDS: LOSARTAN 50 MG TAB PO SCH (17:18)
[2019-07-31] MEDS: SENNOSIDES-DOCUSATE SODIUM 1 EACH TAB PO SCH (22:47)
[2019-07-31] MEDS: ATORVASTATIN 40 MG TAB PO SCH (22:48)
[2019-08-01] MEDS: HYDROcodone/APAP 7.5-325MG 1 EACH TAB PO PRN ×3 (04:12→19:50)
[2019-08-01] MEDS: CARVEDILOL 12.5 MG TAB PO SCH ×2 (06:34→17:53)
[2019-08-01 06:39] LABS: Basophils % (A) 0 %; Eosinophils # (A) 0.4 k/uL (0-0.7); Eosinophils % (A) 5 %; HCT 25.2 % (39.0-53.0); Lymphocytes # (A) 1.6 k/uL (1.0-4.8); Lymphocytes % (A) 19 %; MCH 33.2 pg (25.0-35.0); MCHC 35.7 g/dL (31.0-37.0); MCV 92.8 fL (80.0-100.0); Mean Platelet Volume 7.8; Monocytes # (A) 0.6 k/uL (0-1.0); Monocytes % (A) 7 %; Neutrophils # (A) 5.5 k/uL (1.3-7.7); Neutrophils % (A) 66 %; Platelet Count 239 k/uL (150-450); RBC 2.71 m/uL (4.30-5.90); RDW 12.6 % (11.5-15.5); WBC 8.3 k/uL (3.8-10.6)
[2019-08-01 06:51] LABS: African American GFR (CKD) >90 (>60 ml/min/1.73 sqM); Anion Gap 7 mmol/L; Blood Urea Nitrogen 12 mg/dL (9-20); Calcium 8.1 mg/dL (8.4-10.2); Carbon Dioxide 30 mmol/L (22-30); Chloride 98 mmol/L (98-107); Glucose 104 mg/dL (74-99); Non-African American GFR(CKD) >90 (>60 ml/min/1.73 sqM); Potassium 3.2 mmol/L (3.5-5.1); Sodium 135 mmol/L (137-145)
[2019-08-01] MEDS: SYMBICORT 160-4.5 MCG INHALER INHALATION SCH ×2 (07:39→20:00)
[2019-08-01] MEDS: IPRATROPIUM-ALBUTEROL 3 ML NEB INHALATION SCH ×4 (07:39→20:00)
[2019-08-01] MEDS ORDERED: Potassium Replacement Protocol 1 EACH MISC MISCELLANE PRN (07:53)
[2019-08-01] MEDS: POTASSIUM CHLORIDE ER 20 MEQ TAB.ER PO SCH ×2 (08:30→10:12)
[2019-08-01] MEDS: ASPIRIN 325 MG TAB PO SCH ×2 (08:30→19:50)
[2019-08-01] MEDS: GABAPENTIN 300 MG CAP PO SCH ×2 (08:30→19:50)
[2019-08-01] MEDS: FAMOTIDINE 20 MG TAB PO SCH (08:30)
--- NOTE | 2019-08-01 08:43 | P.PN ---
Subjective Progress Note Date: 08/01/19 Principal diagnosis: Status post bilateral total knee arthroplasties This is a 54 year-old male post bilateral total knee arthroplasties. This is post-op day 4. The patient was evaluated at the bedside today. The patient denies nausea, vomiting, abdominal pain, shortness of breath, and chest pain this morning. Three nights ago the patient was found to be confused and lethar gic. O2 saturation was in th 70's. A chest CTA was ordered and negative for PE. He was transferred to 3N step down unit for closer observation. He was given 1 dose of [place] 10 two days ago then had another dose soon after, he again had a drop in O2 saturation and had an episode of lethargy. [place] 10 was discontinued and 1 tab of [place] 7.5 q6 PRN was ordered. The patient states he continues to feel better this morning. His pain is controlled with the On-Q pumps (which are empty now) and [place] 7.5 as needed. He is passing gas and had a bowel movement since surgery. He is currently on 2L of O2 with a pulse ox of 97% at the beside. Objective - Vital Signs Vital signs: Vital Signs Temp 98.2 F 08/01/19 04:39 Pulse 96 08/01/19 07:50 Resp 20 08/01/19 04:39 BP 113/78 08/01/19 04:39 Pulse Ox 96 08/01/19 07:42 Intake & Output 07/31/19 08/01/19 08/01/19 18:59 06:59 18:59 Intake Total 1560 Balance 1560 Weight 107.6 kg Intake: Oral 1560 Other: Voiding Method Toilet Toilet Urinal Urinal # Voids 2 1 - Exam The patient does not appear in acute distress. Alert and orientated x3. Dressings are clean dry and intact. No erythema or active drainage. Calves are soft and nontender. Good foot and ankle motion without difficulty bilaterally. 1+ edema bilaterally. Sensation and circulatory status is intact. - Labs CBC & Chem 7: 08/01/19 05:52 08/01/19 05:52 Labs: Abnormal Lab Results - Last 24 Hours (Table) 08/01/19 08/01/19 Range/Units 05:52 05:52 RBC 2.71 L (4.30-5.90) m/uL Hgb 9.0 L (13.0-17.5) gm/dL Hct 25.2 L (39.0-53.0) % Sodium 135 L (137-145) mmol/L Potassium 3.2 L (3.5-5.1) mmol/L Glucose 104 H (74-99) mg/dL Calcium 8.1 L (8.4-10.2) mg/dL Assessment and Plan (1) Status post bilateral knee replacements Current Visit: Yes Status: Acute Code(s): Z96.653 - PRESENCE OF ARTIFICIAL KNEE JOINT, BILATERAL SNOMED Code(s): 407707459 (2) Primary osteoarthritis of knees, bilateral Current Visit: Yes Status: Acute Code(s): M17.0 - BILATERAL PRIMARY OSTEOARTHRITIS OF KNEE SNOMED Code(s): 516037039 Plan: 1. Continue pain control, decrease use of [place]. Remove On-Q pumps today. 2. Anticoagulation with Aspirin 325 mg BID 3. Continue physical therapy and ambulation 4. Encouraged incentive spirometry 5. Anticipate discharge home with homecare possibly today when weaned off oxygen and cleared by internal medicine. He is stable from an orthopedic surgery standpoint for discharge home.
[2019-08-01] MEDS ORDERED: predniSONE 20 MG TAB PO STA (11:27)
--- NOTE | 2019-08-01 15:00 | XR ---
EXAMINATION TYPE: XR chest 1V portable DATE OF EXAM: 08/01/2019 CLINICAL HISTORY: Difficulty breathing and hypoxia. TECHNIQUE: Single AP portable upright view of the chest is obtained. COMPARISON: Chest x-ray and CTA chest from 2 days earlier FINDINGS: Lungs remain clear without pleural effusion or pneumothorax seen bilaterally. Cardiac size is stable and mildly enlarged. Osseous structures are intact. Overlying EKG leads are seen. IMPRESSION: Overall stable findings, mild cardiomegaly without acute pulmonary process.
--- NOTE | 2019-08-01 16:37 | P.CNPUL ---
History of Present Illness Consult date: 08/01/19 Requesting physician: Mk Flower Reason for consult: hypoxemia Chief complaint: Hypoxemic respiratory failure, acute History of present illness: This is a 54-year-old white male patient with past medical history of rheumatoid arthritis, hypertension, chronic bronchial asthma, unspecified, kannan te history of tobacco dependence, currently in remission, who came into the hospital on for elective right and left knee total arthroplasty. Early in the morning on postoperative day 2, on 07/30/2019 patient developed hypoxemic respiratory failure, his pulse ox was down to 76% on room air, and he was having decreased level of consciousness, and signs of metabolic encephalopathy. This was thought to be related to patient's pain medications and patient did receive Narcan. His blood gas on FiO2 of 28% showed pO2 of 58, pCO2 of 39, and pH of 7.50, consistent with metabolic alkalosis with hypoxemia, likely related to hypokalemia, at the time patient's serum potassium was only 2.9. Serum potassium was corrected. Chest x-ray was obtained showing no active cardiopulmonary disease, normal size heart. CT angios the chest showed no evidence of pulmonary embolism, and atelectasis at the lung bases. Patient did require brief CPAP support. Patient was started on oral steroids, breathing treatments and incentive spirometry, and subsequently his oxygenation and mentation improved, and today he is on 2 L of oxygen with a pulse ox of 95%, he is wearing oxygen intermittently, he has not required CPAP support, he is been afebrile, hemodynamically stable, he is alert and oriented 3, no significant rhonchi or congestion, no wheezing. Working on the incentive spirometer, he is able to achieve 2000 on the today. Chest x-ray shows mild cardiomegaly without acute pulmonary process. Absent been reviewed showing white blood cell count 8.3, hemoglobin 9.0, the rest of the CBC was within normal limits, sodium is 135, potassium is 3.2, the rest of electrolytes and renal profile were within normal limits. Review of Systems All systems: negative Constitutional: Denies chills, Denies fever Eyes: denies blurred vision, denies pain Ears, nose, mouth and throat: Denies headache, Denies sore throat Cardiovascular: Denies chest pain, Denies shortness of breath Respiratory: Reports dyspnea, Denies cough Gastrointestinal: Denies abdominal pain, Denies diarrhea, Denies nausea, Denies vomiting Musculoskeletal: Denies myalgias Integumentary: Denies pruritus, Denies rash Neurological: Denies numbness, Denies weakness Psychiatric: Denies anxiety, Denies depression Endocrine: Denies fatigue, Denies weight change Past Medical History Past Medical History: Asthma, Hyperlipidemia, Hypertension, Rheumatoid Arthritis (RA) Additional Past Medical History / Comment(s): migraines, varicose veins, History of Any Multi-Drug Resistant Organisms: None Reported Past Surgical History: Back Surgery, Orthopedic Surgery Additional Past Surgical History / Comment(s): L4 lumbar surgery, left hand middle and ring finger repair of injury Past Anesthesia/Blood Transfusion Reactions: Motion Sickness Past Psychological History: No Psychological Hx Reported Smoking Status: Former smoker Past Alcohol Use History: None Reported Additional Past Alcohol Use History / Comment(s): quit smoking 30 yrs ago, smoked 3 PPD, smoked 6-7 yrs Past Drug Use History: None Reported - Past Family History Mother Family Medical History: No Reported History Medications and Allergies Home Medications Medication Instructions Recorded Confirmed Type Albuterol Sulfate [Proair Hfa] 2 puff INHALATION QID PRN 12/15/15 07/21/19 History Budesonide-Formot 160-4.5 Mcg 2 puff INHALATION BID 12/15/15 07/21/19 History [Symbicort 160-4.5 Mcg Inhaler] Cyclobenzaprine [Flexeril] 5 mg PO DAILY PRN 12/15/15 07/21/19 History Carvedilol [Coreg] 25 mg PO BID 09/17/17 07/21/19 History Chlorthalidone [Hygroton] 25 mg PO DAILY 09/17/17 07/21/19 History Etodolac [Lodine] 400 mg PO BID 09/17/17 07/21/19 History Gabapentin [Neurontin] 300 mg PO BID 09/17/17 07/21/19 History Losartan Potassium 100 mg PO W/SUPPER 09/17/17 07/21/19 History SUMAtriptan SUCCINATE [Imitrex] 100 mg PO DIRECTED PRN 09/17/17 07/21/19 History Tiotropium 18 Mcg/Puff [Spiriva] 1 cap INHALATION DAILY 09/17/17 07/21/19 History amLODIPine [Norvasc] 5 mg PO DAILY 09/17/17 07/21/19 History Atorvastatin [Lipitor] 40 mg PO HS 07/21/19 07/21/19 History Potassium Chloride [Klor-Con 20] 20 meq PO DAILY 07/21/19 07/21/19 History Aspirin 325 mg PO BID #60 tab 07/30/19 Rx Sennosides-Docusate Sodium 2 tab PO DAILY #30 tablet 07/30/19 Rx [Senokot-S] Hydrocodone/Acetaminophen [[place] 1 tab PO Q6HR PRN #28 tab 07/31/19 Rx 7.5-325] Allergies Allergy/AdvReac Type Severity Reaction Status Date / Time No Known Allergies Allergy Verified 07/28/19 11:00 Physical Exam Vitals: Vital Signs Temp Pulse Pulse Resp BP Pulse Ox 08/01/19 16:00 98.1 F 90 18 91/54 95 08/01/19 12:20 98.4 F 95 18 106/65 88 L 08/01/19 11:04 96 08/01/19 10:54 88 08/01/19 08:00 98.2 F 92 18 104/67 96 08/01/19 07:50 96 08/01/19 07:42 92 96 08/01/19 04:39 98.2 F 99 18 113/78 96 07/31/19 23:50 97.9 F 101 H 20 123/78 97 07/31/19 20:20 96 07/31/19 20:06 96 07/31/19 20:00 18 07/31/19 19:53 98.1 F 98 18 109/53 97 07/31/19 16:21 92 Intake and Output 08/01/19 08/01/19 08/01/19 06:59 14:59 22:59 Intake Total 400 Balance 400 Intake: Oral 400 Other: Voiding Method Toilet Toilet Urinal Urinal # Voids 1 2 Weight 107.6 kg GENERAL EXAM: Alert, very pleasant, 54-year-old white male comfortable in no apparent distress. HEAD: Normocephalic/atraumatic. EYES: Normal reaction of pupils, equal size. Conjunctiva pink, sclera white. NOSE: Clear with pink turbinates. THROAT: No erythema or exudates. NECK: No masses, no JVD, no thyroid enlargement, no adenopathy. CHEST: No chest wall deformity. Symmetrical expansion. LUNGS: Equal air entry with no crackles, wheeze, rhonchi or dullness. CVS: Regular rate and rhythm, normal S1 and S2, no gallops, no murmurs, no rubs ABDOMEN: Soft, nontender. No hepatosplenomegaly, normal bowel sounds, no guardi ng or rigidity. EXTREMITIES: No clubbing, no cyanosis, 2+ pulses and upper and lower extremities. Bilateral knee dressings are clean dry and intact, 1+ edema bilaterally. MUSCULOSKELETAL: Muscle strength and tone normal. SPINE: No scoliosis or deformity SKIN: No rashes CENTRAL NERVOUS SYSTEM: Alert and oriented -3. No focal deficits, tone is normal in all 4 extremities. PSYCHIATRIC: Alert and oriented -3. Appropriate affect. Intact judgment and insight. Results - Laboratory Findings CBC and BMP: 08/01/19 05:52 08/01/19 05:52 ABG ABG pH 7.50 (7.35-7.45) H 07/30/19 01:10 ABG pCO2 39 mmHg (35-45) 07/30/19 01:10 ABG pO2 58 mmHg (83-108) L* 07/30/19 01:10 ABG O2 Saturation 90.8 % (94-97) L 07/30/19 01:10 Abnormal lab findings: Abnormal Labs 07/29/19 07/29/19 07/30/19 07:13 07:13 00:22 WBC 17.2 H RBC Hgb Hct Neutrophils # 15.0 H ABG pH ABG pO2 ABG HCO3 ABG Total CO2 ABG O2 Saturation Sodium Potassium 3.3 L Chloride Carbon Dioxide Glucose 125 H POC Glucose (mg/dL) 127 H Calcium 07/30/19 07/30/19 07/30/19 00:49 00:49 01:10 WBC 13.8 H RBC 3.52 L Hgb 11.3 L D Hct 32.8 L Neutrophils # 10.6 H ABG pH 7.50 H ABG pO2 58 L* ABG HCO3 30 H ABG Total CO2 31 H ABG O2 Saturation 90.8 L Sodium 133 L Potassium 2.9 L Chloride 97 L Carbon Dioxide Glucose 127 H POC Glucose (mg/dL) Calcium 07/30/19 07/30/19 07/31/19 06:12 06:12 06:37 WBC 13.0 H RBC 3.31 L 2.84 L Hgb 10.8 L 9.4 L Hct 30.8 L 26.5 L Neutrophils # 10.1 H ABG pH ABG pO2 ABG HCO3 ABG Total CO2 ABG O2 Saturation Sodium 135 L Potassium 3.3 L Chloride 97 L Carbon Dioxide 32 H Glucose 107 H POC Glucose (mg/dL) Calcium 8.3 L 07/31/19 08/01/19 08/01/19 06:37 05:52 05:52 WBC RBC 2.71 L Hgb 9.0 L Hct 25.2 L Neutrophils # ABG pH ABG pO2 ABG HCO3 ABG Total CO2 ABG O2 Saturation Sodium 133 L 135 L Potassium 3.2 L Chloride Carbon Dioxide Glucose 101 H 104 H POC Glucose (mg/dL) Calcium 8.0 L 8.1 L - Diagnostic Findings Chest x-ray: report reviewed, image reviewed CT scan - chest: report reviewed, image reviewed Assessment and Plan Plan: Assessment: #1. Acute hypoxemic respiratory failure related to hypoventilation, no evidence of pulmonary embolism or acute pulmonary process on CTA chest or chest x-ray #2. Acute metabolic encephalopathy, likely related to pain medications, imp roved #3. History of chronic bronchial asthma/COPD, the severity is unknown patient is not normally oxygen dependent #4. Remote history of smoking, in remission for last 30 years #5. Rheumatoid arthritis status post total bilateral knee arthroplasty, postop day 4 #6. Postoperative blood loss anemia, expected outcome of surgery #7. Metabolic alkalosis related to hypokalemia, improved Plan: Chest x-rays and CT chest reviewed, oxygen needs have significantly improved, patient is working in his incentive spirometer, radiographic studies are unremarkable, no evidence of pulmonary embolism or focal pulmonary infiltrate. We'll start the patient on heparin for DVT prophylaxis, we'll cut back the prednisone dose to 30 mg daily, patient is stable from pulmonary perspective, he can be considered for discharge home. He will need follow-up in the outpatient setting with Dr. Colon, in one or 2 weeks, and we will obtain outpatient PFT to quantify his lung function. I performed a history & physical examination of the patient and discussed their management with my nurse practitioner, Debora Contreras. I reviewed the nurse practitioner's note and agree with the documented findings and plan of care. Lung sounds are positive for diminished breath sounds. The findings and the impression was discussed with the patient. I attest to the documentation by the nurse practitioner. Time with Patient: Greater than 30
[2019-08-01 16:57] LABS: Glucose,Whole Blood 128 mg/dL (75-99)
--- NOTE | 2019-08-01 17:26 | P.PN ---
Subjective Progress Note Date: 08/01/19 The patient was examined at bedside, is present, postop day #4 status post bilateral knee replacement, doing well on 2 L via nasal cannula. Reportedly that he was wheezing earlier today but now improved after having breathing treatments. Nursing reporting the patient desats with exertion. Objective - Vital Signs Vital signs: Vital Signs Temp 98.1 F 08/01/19 16:00 Pulse 90 08/01/19 16:53 Resp 18 08/01/19 16:00 BP 91/54 08/01/19 16:00 Pulse Ox 95 08/01/19 16:00 Intake & Output 07/31/19 08/01/19 08/01/19 18:59 06:59 18:59 Intake Total 1560 400 Balance 1560 400 Weight 107.6 kg Intake: Oral 1560 400 Other: Voiding Method Toilet Toilet Toilet Urinal Urinal Urinal # Voids 2 1 2 - Exam Constitutional: No acute distress, conversant, pleasant Eyes: Anicteric sclerae, moist conjunctiva, no lid-lag, PERRLA ENMT: NC/AT,Oropharynx clear, no erythema, exudates Neck:Supple, FROM, no masses, or JVD, No carotid bruits; No thyromegaly Lungs: Clear to auscultation, Clear to percussion, Normal respiratory effort, no accessory muscle use Cardiovascular: Heart regular in rate and rhythm, No murmurs, gallops, or rubs no peripheral edema Abdominal: Soft Nontender, nom distended, no guarding, no rebound or rigidity, Normoactive bowel sounds No hepatomegaly, No splenomegaly, No palpable mass No abdominal wall hernia noted Skin: Normal temperature, tone, texture, turgor, No induration No subcutaneous nodules, No rash, lesions, No ulcers Extremities: Dressings are clean dry and intact. No erythema or active drainage. Calves are soft and nontender. Good foot and ankle motion without difficulty bilaterally. Sensation and circulatory status is intact. Psychiatric: Alert and oriented to person, place and time, Appropriate affect Intact judgement Neuro: Muscles Strength 5/5 in all 4 extremities, Sensation to light touch grossly present throughout, Cranial nerves II-XII grossly intact. No focal sensory deficits - Labs CBC & Chem 7: 08/01/19 05:52 08/01/19 05:52 Labs: Abnormal Lab Results - Last 24 Hours (Table) 08/01/19 08/01/19 08/01/19 Range/Units 05:52 05:52 16:48 RBC 2.71 L (4.30-5.90) m/uL Hgb 9.0 L (13.0-17.5) gm/dL Hct 25.2 L (39.0-53.0) % Sodium 135 L (137-145) mmol/L Potassium 3.2 L (3.5-5.1) mmol/L Glucose 104 H (74-99) mg/dL POC Glucose (mg/dL) 128 H (75-99) mg/dL Calcium 8.1 L (8.4-10.2) mg/dL Assessment and Plan Assessment: Acute metabolic encephalopathy * Secondary to opiates ( improved after Narcan) * Continue Narcan when necessary if required Acute respiratory failure with hypoxemia * Secondary to opiates induced respiratory depression, currently on 2 L by nasal cannula * CT of the chest negative for PE, ABG showed respiratory alkalosis * The patient seen by pulmonary and cleared for discharge Hypertension * Blood pressure continues to be borderline we'll hold his chlorthalidone and Norvasc today * blood pressure marginally elevated continue to monitor Hypokalemia * Replace with 40 mEq of K-Lyte * Continue potassium were placement protocol will also replace magnesium * Recheck electrolytes tomorrow Asthma with mild exacerbation * Continue DuoNeb breathing treatments * Patient initiated on systemic steroids with prednisone today Bilateral degenerative joint disease of the knee status post total knee arthroplasty bilaterally postoperative day 2 * pain Management per orthopedics * Opiate medications have been discontinued, patient continues to have Q pumps Disposition * We'll recheck labs in the morning replace electrolytes today and see if the patient has improved * Check a home O2 evaluation * Patient medically stable we'll sign off tomorrow
[2019-08-01] MEDS: LOSARTAN 50 MG TAB PO SCH (17:53)
[2019-08-01] MEDS: HEPARIN SODIUM,PORCINE 5,000 UNIT/ML 1 ML VIAL SQ SCH (17:53)
[2019-08-01] MEDS: SENNOSIDES-DOCUSATE SODIUM 1 EACH TAB PO SCH (19:50)
[2019-08-01] MEDS: ATORVASTATIN 40 MG TAB PO SCH (19:50)
[2019-08-01 20:39] LABS: Glucose,Whole Blood 157 mg/dL (75-99)
[2019-08-02] MEDS: HEPARIN SODIUM,PORCINE 5,000 UNIT/ML 1 ML VIAL SQ SCH ×2 (00:07→07:36)
[2019-08-02] MEDS: HYDROcodone/APAP 7.5-325MG 1 EACH TAB PO PRN ×2 (01:44→07:36)
[2019-08-02 06:29] LABS: Glucose,Whole Blood 113 mg/dL (75-99)
[2019-08-02] MEDS: CARVEDILOL 12.5 MG TAB PO SCH (06:37)
[2019-08-02 07:17] LABS: African American GFR (CKD) >90 (>60 ml/min/1.73 sqM); Anion Gap 6 mmol/L; Blood Urea Nitrogen 12 mg/dL (9-20); Calcium 8.5 mg/dL (8.4-10.2); Carbon Dioxide 30 mmol/L (22-30); Chloride 101 mmol/L (98-107); Glucose 104 mg/dL (74-99); Magnesium 1.9 mg/dL (1.6-2.3); Non-African American GFR(CKD) >90 (>60 ml/min/1.73 sqM); Potassium 3.4 mmol/L (3.5-5.1); Sodium 137 mmol/L (137-145)
[2019-08-02] MEDS: GABAPENTIN 300 MG CAP PO SCH (07:36)
[2019-08-02] MEDS: FAMOTIDINE 20 MG TAB PO SCH (07:36)
[2019-08-02] MEDS: ASPIRIN 325 MG TAB PO SCH (07:36)
[2019-08-02 07:58] VITALS: BP 123/81; RESP 18; TEMP 97.6
[2019-08-02] MEDS ORDERED: predniSONE 10 MG TAB PO SCH (09:00)
[2019-08-02] MEDS ORDERED: predniSONE 20 MG TAB PO SCH (09:00)
[2019-08-02] MEDS: IPRATROPIUM-ALBUTEROL 3 ML NEB INHALATION SCH (09:23)
--- NOTE | 2019-08-02 09:32 | P.DS ---
Providers Date of admission: 07/30/19 13:39 Expected date of discharge: 08/02/19 Attending physician: Heladio Jasmine Consults: 07/28/19 16:20 Consult Physician Routine Consulting Provider: Julita Bonner Consult Reason/Comments: medical management Do you want consulting provider notified?: Yes 08/01/19 14:35 Consult Physician Urgent Consulting Provider: Judi Roberson Consult Reason/Comments: oxygen dependence/history of asthma Do you want consulting provider notified?: Yes Primary care physician: Noemi Wynne - Discharge Diagnosis(es) (1) Primary osteoarthritis of knees, bilateral Current Visit: Yes Status: Acute (2) Status post bilateral knee replacements Current Visit: Yes Status: Acute Hospital Course: This is a 54-year-old male with known history of degenerative arthritis of bilateral knees. The patient presents for evaluation. After discussion and consideration patient elects to proceed with bilateral total knee arthroplasties. The patient is seen preoperatively by Dr. Jasmine and medically cleared for surgery by their primary care physician. Patient was admitted to [facility] on 07/30/2019 for bilateral total knee arthroplasties. The procedures are performed without complication or sequelae. During this admission the patient did have an episode of acute respiratory failure secondary to opiate use. The patient's O2 sats have since improved and he was evaluated by pulmonology. The patient's O2 sats are 96% this morning on room air. Patient denies any shortness of breath on day of discharge. The patient is doing well postoperatively. Labs and vital signs are stable on day of discharge. On day of discharge patient's knee incisions are healing well. There is minimal erythema. There is no drainage noted at this time. There is minimal soft tissue swelling to bilateral knees. Patient has full foot and ankle motion bilaterally without difficulty or pain. Calves are soft and nontender to palpation. Neurovascular status to bilateral lower extremities are intact. Lobito landaverde is discharged home in good condition. Opioid start talking form is reviewed and signed at patient bedside. Please see med rec for accurate list of home medications. Plan - Discharge Summary Discharge Rx Participant: Yes New Discharge Prescriptions: New Aspirin 325 mg PO BID #60 tab Sennosides-Docusate Sodium [Senokot-S] 2 tab PO DAILY #30 tablet HYDROcodone/APAP 7.5-325MG [[place] 7.5-325] 1 tab PO Q6H PRN #28 tab PRN Reason: Pain No Action Budesonide-Formot 160-4.5 Mcg [Symbicort 160-4.5 Mcg Inhaler] 2 puff INHALATION BID Albuterol Sulfate [Proair Hfa] 2 puff INHALATION QID PRN PRN Reason: sob Cyclobenzaprine [Flexeril] 5 mg PO DAILY PRN PRN Reason: Pain Tiotropium 18 Mcg/Puff [Spiriva] 1 cap INHALATION DAILY Losartan Potassium 100 mg PO W/SUPPER Gabapentin [Neurontin] 300 mg PO BID amLODIPine [Norvasc] 5 mg PO DAILY Etodolac [Lodine] 400 mg PO BID Chlorthalidone [Hygroton] 25 mg PO DAILY Carvedilol [Coreg] 25 mg PO BID SUMAtriptan SUCCINATE [Imitrex] 100 mg PO DIRECTED PRN PRN Reason: Migraine Headache Potassium Chloride [Klor-Con 20] 20 meq PO DAILY Atorvastatin [Lipitor] 40 mg PO HS Discharge Medication List Albuterol Sulfate [Proair Hfa] 2 puff INHALATION QID PRN 12/15/15 [History] Budesonide-Formot 160-4.5 Mcg [Symbicort 160-4.5 Mcg Inhaler] 2 puff INHALATION BID 12/15/15 [History] Cyclobenzaprine [Flexeril] 5 mg PO DAILY PRN 12/15/15 [History] Carvedilol [Coreg] 25 mg PO BID 09/17/17 [History] Chlorthalidone [Hygroton] 25 mg PO DAILY 09/17/17 [History] Etodolac [Lodine] 400 mg PO BID 09/17/17 [History] Gabapentin [Neurontin] 300 mg PO BID 09/17/17 [History] Losartan Potassium 100 mg PO W/SUPPER 09/17/17 [History] SUMAtriptan SUCCINATE [Imitrex] 100 mg PO DIRECTED PRN 09/17/17 [History] Tiotropium 18 Mcg/Puff [Spiriva] 1 cap INHALATION DAILY 09/17/17 [History] amLODIPine [Norvasc] 5 mg PO DAILY 09/17/17 [History] Atorvastatin [Lipitor] 40 mg PO HS 07/21/19 [History] Potassium Chloride [Klor-Con 20] 20 meq PO DAILY 07/21/19 [History] Aspirin 325 mg PO BID #60 tab 07/30/19 [Rx] Sennosides-Docusate Sodium [Senokot-S] 2 tab PO DAILY #30 tablet 07/30/19 [Rx] HYDROcodone/APAP 7.5-325MG [[place] 7.5-325] 1 tab PO Q6H PRN #28 tab 08/02/19 [Rx] Follow up Appointment(s)/Referral(s): [facility], [NON-STAFF] - As Needed Heladio Jasmien MD [STAFF PHYSICIAN] - 08/11/19 10:15 am Activity/Diet/Wound Care/Special Instructions: Weightbearing as tolerated with a walker Aspirin 325mg twice daily May shower with dressings in place Remove Optifoam dressings in 10 days after surgery Ice knees as needed Follow up with Dr. Jasmine in 2 weeks. Call [facility] at with questions or concerns Discharge Disposition: HOME WITH HOME HEALTH SERVICES
[2019-08-02] MEDS: SYMBICORT 160-4.5 MCG INHALER INHALATION SCH (09:36)
[2019-08-02 09:41] VITALS: PULSE 89
--- NOTE | 2019-08-02 12:01 | P.PN ---
Subjective Progress Note Date: 08/02/19 Patient examined at bedside doing well, reports his wheezes are much improved has been on room air all night and through today without any noted desaturations. Objective - Vital Signs Vital signs: Vital Signs Temp 97.6 F 08/02/19 07:57 Pulse 89 08/02/19 09:41 Resp 18 08/02/19 07:57 BP 123/81 08/02/19 07:57 Pulse Ox 96 08/02/19 07:57 Intake & Output 08/01/19 08/02/19 08/02/19 18:59 06:59 18:59 Intake Total 640 Balance 640 Weight 105.9 kg Intake: Oral 640 Other: Voiding Method Toilet Toilet Urinal Urinal # Voids 2 1 - Exam Constitutional: No acute distress, conversant, pleasant Eyes: Anicteric sclerae, moist conjunctiva, no lid-lag, PERRLA ENMT: NC/AT,Oropharynx clear, no erythema, exudates Neck:Supple, FROM, no masses, or JVD, No carotid bruits; No thyromegaly Lungs: Clear to auscultation, Clear to percussion, Normal respiratory effort, no accessory muscle use Cardiovascular: Heart regular in rate and rhythm, No murmurs, gallops, or rubs no peripheral edema Abdominal: Soft Nontender, nom distended, no guarding, no rebound or rigidity, Normoactive bowel sounds No hepatomegaly, No splenomegaly, No palpable mass No abdominal wall hernia noted Skin: Normal temperature, tone, texture, turgor, No induration No subcutaneous nodules, No rash, lesions, No ulcers Extremities: Dressings are clean dry and intact. No erythema or active drainage. Calves are soft and nontender. Good foot and ankle motion without difficulty bilaterally. Sensation and circulatory status is intact. Psychiatric: Alert and oriented to person, place and time, Appropriate affect Intact judgement Neuro: Muscles Strength 5/5 in all 4 extremities, Sensation to light touch grossly present throughout, Cranial nerves II-XII grossly intact. No focal sensory deficits - Labs CBC & Chem 7: 08/01/19 05:52 08/02/19 05:57 Labs: Abnormal Lab Results - Last 24 Hours (Table) 08/01/19 08/01/19 08/02/19 Range/Units 16:48 20:38 05:57 Potassium 3.4 L (3.5-5.1) mmol/L Glucose 104 H (74-99) mg/dL POC Glucose (mg/dL) 128 H 157 H (75-99) mg/dL 08/02/19 Range/Units 06:28 Potassium (3.5-5.1) mmol/L Glucose (74-99) mg/dL POC Glucose (mg/dL) 113 H (75-99) mg/dL Assessment and Plan Assessment: Acute metabolic encephalopathy * Secondary to opiates ( improved after Narcan) * Continue Narcan when necessary if required Acute respiratory failure with hypoxemia * Secondary to opiates induced respiratory depression, currently on room air * CT of the chest negative for PE, ABG showed respiratory alkalosis * The patient seen by pulmonary and cleared for discharge Hypertension * Blood pressure continues to be borderline we'll hold his chlorthalidone and Norvasc on discharge and restart his losartan and Coreg * blood pressure marginally elevated continue to monitor Hypokalemia * Resolved Asthma with mild exacerbation * Continue DuoNeb breathing treatments * Patient initiated on systemic steroids with prednisone today Bilateral degenerative joint disease of the knee status post total knee arthroplasty bilaterally postoperative day 2 * pain Management per orthopedics * Opiate medications have been discontinued, patient continues to have Q pumps Disposition * We'll recheck labs in the morning replace electrolytes today and see if the patient has improved * Check a home O2 evaluation * Patient medically stable and ready for discharge today
== END 2019-08-02 10:54 | disposition home health service (06) | DRG 981 ==
LOC: OR 10:45 → 4SSUR 16:08 → OR 07-29 19:26 → 4SSUR 07-29 21:48 → 3SCARD 07-30 04:44 → OBSVTOIN 07-30 13:39
PROVIDERS: ADMIT Orthopaedic Surgery; ATTEND Orthopaedic Surgery
PROC: 0SRC0J9 Replacement of Right Knee Joint with Synthetic Substitute, Cemented, Open Approach (ICD-10-PCS; 2019-07-28)
PROC: 0SRD0J9 Replacement of Left Knee Joint with Synthetic Substitute, Cemented, Open Approach (ICD-10-PCS; principal; 2019-07-28 12:30)
DX: J96.01 Acute respiratory failure with hypoxia (principal); G92 Toxic encephalopathy; J45.901 Unspecified asthma with (acute) exacerbation; E87.3 Alkalosis; D62 Acute posthemorrhagic anemia; M17.0 Bilateral primary osteoarthritis of knee; M21.162 Varus deformity, not elsewhere classified, left knee; M21.161 Varus deformity, not elsewhere classified, right knee; T40.605A Adverse effect of unspecified narcotics, initial encounter; I10 Essential (primary) hypertension; M06.9 Rheumatoid arthritis, unspecified; G43.909 Migraine, unspecified, not intractable, without status migrainosus; E78.5 Hyperlipidemia, unspecified; E87.6 Hypokalemia; Z79.51 Long term (current) use of inhaled steroids; Z79.82 Long term (current) use of aspirin; Z79.899 Other long term (current) drug therapy; Z87.891 Personal history of nicotine dependence
CPT/HCPCS: 36600; 64448; 71045; 71275; 76942; 80048; 82805; 83605; 83735; 85025; 88300; 93005; 94640; 94660; 94760; 94762

== ENCOUNTER → 2024-01-29 | Outpatient (CLI) | payer BC ==
--- NOTE | 2024-01-29 11:18 | CA ---
Stress Echo Report Tee Ferreira Age: 58 Gender: M : 1965 Exam Date: 01/29/2024 09:47 Exam Location: [place] Stress Ht (in): 71 Wt (lb): 200 Ordering Physician: Noemi Wynne DO Referring Physician: Noemi Wynne DO Manager Operational: Jose Spencer Technologist Procedure CPT: Indication: I10 HTN ICD-9 Codes: Rhythm: Patient History: Cardiac Medications: Medications in past 24 hours: Contrast: N/A Stress Results Protocol: Wilfredo Total dose(mL): NA Exercise Duration (min:sec): 9:[address] Depression (mm): Angina Score: Luciano Score: METS: 10.5 Resting HR: 80 Resting BP: 135 / 101 Peak HR: 137 Peak BP: / 136 Max Predicted HR: 160 86 % Max Predicted HR Target HR: 136 Double Product: Stress Summary: BP Response: Reason for Termination: MAX EXERTION/TARGET HR Cardiac Symptoms: NO SYMPTOMS ECG Analysis Resting ECG: Normal sinus rhythm normal axis normal intervals Stress ECG: Patient exercised on Wilfredo protocol for 9 minutes achieving 85% of predicted maximal heart rate without chest pain or diagnostic ST segment depression Arrhythmia: Echo Analysis Resting Echo: Normal left ventricular size wall motion systolic function Peak Echo Analysis: Normal hyperdynamic response of all segments of myocardium noted MEASUREMENTS (Male/Female) Normal Values CONCLUSIONS Good exercise tolerance Negative stress test by EKG criteria Negative stress echo Dr. Tulio Dill MD (Electronically Signed) Final Date: 29 January 2024 11:17
== END | disposition home or self-care (01) ==
LOC: RADNMMAIN 09:35
PROVIDERS: ATTEND Family Medicine
DX: I10 Essential (primary) hypertension (principal); J44.9 Chronic obstructive pulmonary disease, unspecified
CPT/HCPCS: 93351